=== PATIENT | female | born 1955 | race Caucasian/White ===

== ENCOUNTER → 2021-06-12 | Outpatient (CLI) | payer MEDICARE ==
--- NOTE | 2021-06-12 08:55 | US ---
EXAMINATION TYPE: US abdomen complete DATE OF EXAM: 06/12/2021 COMPARISON: NONE CLINICAL HISTORY: R10.811 Right upper quadrant abdominal tenderness. Intermittent RUQ pain and N/V x 6 weeks, gets worse after eating EXAM MEASUREMENTS: Liver Length: 11.9 cm Gallbladder Wall: 0.2 cm CBD: 0.5 cm Spleen: 9.7 cm Right Kidney: 9.1 x 4.3 x 4.0 cm Left Kidney: 10.1 x 4.1 x 4.5 cm Pancreas: visualized portions wnl, tail limited by overlying midline bowel gas Liver: wnl Gallbladder: 0.5cm hyperechoic focus along anterior wall, possible polyp Evidence for sonographic Martinez's sign: yes CBD: wnl Spleen: wnl Right Kidney: wnl Left Kidney: wnl Upper IVC: wnl Abd Aorta: wnl The liver is homogenous. The intrahepatic portion of the IVC and proximal abdominal aorta are within normal limits. There is no evidence of cholelithiasis. Common bile duct is unremarkable. The visu alized portions of the pancreas are homogenous. The spleen is unremarkable. Kidneys are symmetric a nd free of hydronephrosis. No renal lesions are seen. IMPRESSION: Suspect gallbladder polyp.
== END | disposition home or self-care (01) ==
LOC: RADUSWWP 08:09
PROVIDERS: ATTEND Internal Medicine
DX: R10.811 Right upper quadrant abdominal tenderness (principal)
CPT/HCPCS: 76700

== ENCOUNTER → 2021-10-05 | Outpatient (CLI) | payer MEDICARE ==
--- NOTE | 2021-10-11 12:20 | MM ---
Reason for exam: screening (asymptomatic). Last mammogram was performed 1 year ago. History: Patient is postmenopausal. Family history of breast cancer in mother at age 75 and breast cancer in maternal grandmother. Physical Findings: A clinical breast exam by your physician is recommended on an annual basis and results should be correlated with mammographic findings. MG 3D Screening Mammo W/Cad Bilateral CC and MLO view(s) were taken. Prior study comparison: September 23, 2020, mammogram, performed at [facility]. August 13, 2019, mammogram, performed at [facility]. The breast tissue is heterogeneously dense. This may lower the sensitivity of mammography. There is no discrete abnormality. ASSESSMENT: Negative, BI-RAD 1 RECOMMENDATION: Routine screening mammogram of both breasts in 1 year. Some consider bilateral ultrasound surveillance in patient with extremely dense fibroglandular tissue.
== END | disposition home or self-care (01) ==
LOC: RADMAMWWP 09:44
PROVIDERS: ATTEND Internal Medicine
DX: Z12.31 Encounter for screening mammogram for malignant neoplasm of breast (principal); Z78.0 Asymptomatic menopausal state; Z80.3 Family history of malignant neoplasm of breast
CPT/HCPCS: 77063; 77067

== ENCOUNTER → 2021-10-19 | Outpatient (CLI) | payer MEDICARE ==
--- NOTE | 2021-10-19 11:49 | USB ---
Reason for exam: additional evaluation requested from abnormal screening. History: Patient is postmenopausal. Family history of breast cancer in mother at age 75 and breast cancer in maternal grandmother. Physical Findings: A clinical breast exam by your physician is recommended on an annual basis and results should be correlated with mammographic findings. US Breast BILAT Technologist: Amber Quesada Right complete breast ultrasound includes all four quadrants, the retroareolar region and axilla. Finding demonstrates no cystic or solid lesion seen. Left complete breast ultrasound includes all four quadrants, the retroareolar region and axilla. Finding demonstrates no cystic or solid lesion seen. Diffuse dense tissue throughout bilateral breasts. Results were given to the patient verbally at the time of the exam. ASSESSMENT: Negative, BI-RAD 1 RECOMMENDATION: Return to routine screening mammogram schedule for both breasts.
== END | disposition home or self-care (01) ==
LOC: RADUSWWP 08:04
PROVIDERS: ATTEND Internal Medicine
DX: R92.2 Inconclusive mammogram (principal); Z78.0 Asymptomatic menopausal state; Z80.3 Family history of malignant neoplasm of breast

== ENCOUNTER → 2021-11-07 | Outpatient (CLI) | payer MEDICARE ==
--- NOTE | 2021-11-08 16:08 | XR ---
EXAMINATION TYPE: XR foot complete RT DATE OF EXAM: 11/07/2021 COMPARISON: None HISTORY: Right great toe pain after crush injury TECHNIQUE: 3 view right foot FINDINGS: Hallux valgus deformity is present. There is mild diffuse joint space narrowing throughout the proximal and distal interphalangeal joint spaces. Metatarsal-phalangeal joint spaces appear prese rved. Alignment is otherwise unremarkable. Small plantar calcaneal heel spur is present. Follow up exams can be performed 7-10 days from acute trauma for continued pain. IMPRESSION: 1. No acute osseous abnormality right foot
--- NOTE | 2021-11-08 16:09 | XR ---
EXAMINATION TYPE: XR toes RT DATE OF EXAM: 11/07/2021 COMPARISON: Right foot HISTORY: Crush injury right great toe, pain TECHNIQUE: 4 view right great toe FINDINGS: Hallux valgus deformity is present. No displaced fractures are identified. Some soft tissue swelling over the distal first digit may be present. Joint space narrowing is present. Follow-up exams performed 7-10 days from acute trauma for continued pain. IMPRESSION: 1. No acute osseous abnormality right great toe
== END | disposition home or self-care (01) ==
LOC: RADXRMAIN 15:49
PROVIDERS: ATTEND Internal Medicine
DX: S99.821A Other specified injuries of right foot, initial encounter (principal); M79.674 Pain in right toe(s)

== ENCOUNTER → 2022-10-09 | Outpatient (CLI) | payer MEDICARE ==
--- NOTE | 2022-10-10 07:53 | MM ---
Reason for Exam: Screening (asymptomatic). Last screening mammogram was performed 12 month(s) ago. Patient History: Menarche at age 12. First Full-Term at age 25. Postmenopausal. Maternal grandmother had breast cancer, age 50. Mother had breast cancer, age 75. Risk Values: Viktoriya 5 year model risk: 3.3%. NCI Lifetime model risk: 11.1%. Prior Study Comparison: 08/13/2019 Screening Mammogram, [facility]. 09/23/2020 Screening Mammogram, [facility]. 10/05/2021 Bilateral Screening Mammogram, [facility]. Tissue Density: The breast tissue is extremely dense which could obscure a lesion on mammography. Findings: Analyzed By CAD. There is no suspicious group of microcalcifications or new suspicious mass in either breast. Overall Assessment: Negative, BI-RAD 1 Management: Screening Mammogram of both breasts in 1 year. A clinical breast exam by your physician is recommended on an annual basis and results should be correlated with mammographic findings. [facility] will attempt to contact patient to return for supplemental views and ultrasound if indicated. Electronically signed and approved by: Gerardo Calderon DO
== END | disposition home or self-care (01) ==
LOC: RADMAMWWP 09:28
PROVIDERS: ATTEND Internal Medicine
DX: Z12.31 Encounter for screening mammogram for malignant neoplasm of breast (principal); Z78.0 Asymptomatic menopausal state; Z80.3 Family history of malignant neoplasm of breast
CPT/HCPCS: 77063; 77067

== ENCOUNTER → 2023-04-10 | Outpatient (CLI) | payer MEDICARE ==
--- NOTE | 2023-04-10 23:35 | BD ---
EXAMINATION TYPE: Axial Bone Density DATE OF EXAM: 04/10/2023 CLINICAL HISTORY: 68 years old Female. ICD-10 CODE: M81.0 AGE-RELATED OSTEOPOROSIS W/O CURRENT PATHO LO Height: 66 in Weight: 146 lbs FRAX RISK QUESTIONS: History of Fracture in Adulthood: rt foot fx age 52, lt foot fx age 55, lt elbow fx age 64 RISK FACTORS HISTORY OF: Family History of Osteoporosis: yes mother Active: yes Postmenopausal woman: age 50 Lost more than 2 inches in height since high school: yes 06/18" MEDICATIONS: Osteoporosis Medications: yes Which medication: Fosamax How Lon years Additional Medications: cholesterol meds, vit b12 EXAM MEASUREMENTS: Bone mineral densitometry was performed using the [email or web address] System. Bone mineral density as measured about the Lumbar spine is: ----- L1-L4(G/cm2): 1.133 T Score Values are as follows: ----- L1: -1.9 ----- L2: -0.8 ----- L3: -0.2 ----- L4: 1.0 ----- L1-L4: -0.4 Z Score Values are as follows: ----- L1: -0.3 ----- L2: 0.8 ----- L3: 1.4 ----- L4: 2.6 ----- L1-L4: 1.2 Bone mineral density baseline Bone mineral density about the R hip (g/cm2): 0.838 Bone mineral density about the L hip (g/cm2): 0.728 T Score values are as follows: -----R Neck: -1.8 -----L Neck: -2.6 -----R Total: -1.3 -----L Total: -2.2 Z Score values are as follows: -----R Neck: -0.3 -----L Neck: -1.0 -----R Total: 0.0 -----L Total: -0.9 Bone mineral density baseline FRAX%s: The graph provided illustrates a 22.8% chance for a major osteoporotic fx and a 5.8% chance f or the hips probability for fx in 10 years time. IMPRESSION: Osteopenia (T Score between -2.5 and -1). There is slightly increased risk of fracture and the patient may be considered for treatment. Re-Screen 2-5 years. NOTE: T-SCORE=SD OF THE YOUNG ADULT MEAN.
== END | disposition home or self-care (01) ==
LOC: RADBDWWP 09:08
PROVIDERS: ATTEND Internal Medicine
DX: M81.0 Age-related osteoporosis without current pathological fracture (principal); M85.89 Other specified disorders of bone density and structure, multiple sites; Z78.0 Asymptomatic menopausal state
CPT/HCPCS: 77080

== ENCOUNTER → 2023-10-07 | Outpatient (CLI) | payer MEDICARE ==
--- NOTE | 2023-10-07 10:49 | XR ---
EXAMINATION TYPE: XR chest 2V DATE OF EXAM: 10/07/2023 COMPARISON: NONE HISTORY: Shortness of breath TECHNIQUE: Frontal and lateral views of the chest are obtained. FINDINGS: Scattered senescent parenchymal changes noted. Hyperinflation compatible with COPD. No evidence for infiltrate. No evidence for atelectasis. Heart size is stable. Mediastinal structures are stable and grossly unremarkable. No evidence for hilar prominence. Degenerative changes dorsal spine. IMPRESSION: 1. No evidence for acute pulmonary disease.
== END | disposition home or self-care (01) ==
LOC: RADXRWHC 10:26
PROVIDERS: ATTEND Internal Medicine
DX: J45.909 Unspecified asthma, uncomplicated (principal); R06.02 Shortness of breath
CPT/HCPCS: 71046

== ENCOUNTER → 2023-10-15 | Outpatient (CLI) | payer MEDICARE ==
--- NOTE | 2023-10-15 14:27 | MM ---
Reason for Exam: Screening (asymptomatic). Last screening mammogram was performed 12 month(s) ago. Patient History: Menarche at age 12. First Full-Term at age 25. Postmenopausal. Maternal grandmother had breast cancer, age 50. Mother had breast cancer, age 75. Risk Values: Viktoriya 5 year model risk: 3.4%. NCI Lifetime model risk: 10.7%. Prior Study Comparison: 09/23/2020 Screening Mammogram, [facility]. 10/05/2021 Bilateral Screening Mammogram, [facility]. 10/09/2022 Bilateral MG 3D screening mammo w/cad, [facility]. Tissue Density: The breasts are extremely dense, which lowers the sensitivity of mammography. Findings: Analyzed By CAD. The pattern is symmetrical. Pattern appears stable. Focal asymmetry may be medial posterior right craniocaudal view. No suspicious groups of microcalcifications, spiculated or lobular masses, architectural distortion or other secondary signs of malignancy are mammographically apparent. Overall Assessment: Benign, BI-RAD 2 Management: Screening Mammogram of both breasts in 1 year. A negative mammogram report should not preclude additional follow up of suspicious palpable abnormalities. Patient should continue monthly self breast exam. A clinical breast exam by your physician is recommended on an annual basis and results should be correlated with mammographic findings. Note on Viktoriya scores and lifetime risk: 1. A Viktoriya score greater than 3% is considered moderate risk. If this is the case, consider specialist referral to assess eligibility for a risk reducing agent. 2. If overall lifetime risk for the development of breast cancer is 20% or higher, the patient may qualify for future screening with alternating mammogram and breast MRI. Electronically signed and approved by: Dre Mane D.O. Radiologis
== END | disposition home or self-care (01) ==
LOC: RADMAMWWP 10:23
PROVIDERS: ATTEND Internal Medicine
DX: Z12.31 Encounter for screening mammogram for malignant neoplasm of breast (principal); Z78.0 Asymptomatic menopausal state; Z80.3 Family history of malignant neoplasm of breast
CPT/HCPCS: 77063; 77067

== ENCOUNTER → 2023-10-31 | Outpatient (CLI) | payer MEDICARE ==
[2023-10-31 14:11] VITALS: BP 158/94; PULSE 79; RESP 17; TEMP 98
--- NOTE | 2023-10-31 14:13 | P.GSCN ---
History of Present Illness Consult date: 10/31/23 Reason for Consult: high risk for breast cancer Requesting physician: Omi Watkins History of present illness: Celeste is a 68 year old female seen in consultation for Dr. Watkins regarding high risk for breast cancer. She had a bilateral mammogram on 10-15-23 which was BIRAD 2, this was personally reviewed. She had very dense breast. She does not feel any lumps masses or nodules of concern in either breast. She has never had any surgery in her breast. She has not had any recent trauma or infection in her breast. She is not complaining of any nipple discharge or skin changes. Risk Assessment: Viktoriya Risk:5 year: 3.4% lifetime risk: 10.7% Caffiene: 2 cups nicotine: none chocolate: occasional BCP: 10 years, then a tubal, then in her 40's for heavy periods for 4 years hormones: none Family History: mother: breast cancer metastasis when dx. in her 70's maternal grandmother: breast cancer, dx. in her 50's father: bladder cancer Hormonal History: menarche: 12 , breast fed: yes, age at first 25 menoapsue: 50 hormones: none Surgical History: tonsil gallbladder tubaligation Medical History: high cholesterol osteopenia Social History: nicotine: none alcohol: occasional drugs: none Review of Systems - Constitutional Denies fever, Denies weight loss - EENT Eyes: denies blurred vision Ears: deny: decreased hearing, tinnitus Ears, nose, mouth and throat: Denies dysphagia - Breasts bilateral: as per HPI - Cardiovascular Denies chest pain, Denies shortness of breath - Respiratory Reports cough - Gastrointestinal Gastrointestinal Comment(s): ? GERD - Genitourinary Genitourinary: Denies dysuria, Denies hematuria Menstruation: Reports postmenopausal - Musculoskeletal Reports as per HPI - Integumentary Reports as per HPI - Neurological Denies headaches, Denies syncope - Psychiatric Reports as per HPI - Endocrine Reports as per HPI - Allergic/Immunologic Reports seasonal allergies Surgical - Exam - General no distress - Eyes normal ocular movement - Neck trachea midline - Respiratory normal respiratory effort, clear to auscultation - Cardiovascular Rhythm: regular Heart Sounds: normal: S1, S2 - Abdomen Abdomen: soft, non tender, no guarding, no rigid, no rebound - Integumentary normal turgor - Neurologic no disoriented, no combative - Musculoskeletal normal gait - Psychiatric oriented to time, oriented to person, oriented to place, speech is normal, memory intact Breast Exam: BRA: 34DDD inspection: Bilateral grade 3 ptosis, right breast is larger than left breast Palpation: Right breast: Multi positional exam no dominant masses or nodules of concern Right axilla: No adenopathy of concern Left breast: Multi positional exam no dominant masses or nodules of concern Left axilla: No adenopathy of concern Results Impression: High risk breast cancer secondary to positive family history Viktoriya risk evaluation 5-year risk 3.4% Symmetry of the breast right breast larger than left breast High cholesterol Plan: We will discuss possibility of genetic testing, she is going to talk to them Option of chemoprophylaxis at this time she declined Close surveillance MRI of the breast with follow up Mammogram and ultrasound to alternate every 6 months with appointment after these are done follow up sooner any questions or concerns CC: Dr. Watkins
== END ==
LOC: WWCWWP 13:14
PROVIDERS: ATTEND Surgery
DX: E78.00 Pure hypercholesterolemia, unspecified (principal); R92.30 Dense breasts, unspecified; Z80.3 Family history of malignant neoplasm of breast

== ENCOUNTER 2024-03-24 13:23 | Inpatient (IN) | payer MEDICARE ==
[2024-03-24] MEDS ORDERED: PIPERACILLIN-TAZOBACTAM 3.375 GM in SODIUM CHLORIDE 0.9% 100 ML IVPB STA (13:45)
[2024-03-24] MEDS ORDERED: NALOXONE 0.4 MG/ML 1 ML VIAL IV PRN (15:15)
--- NOTE | 2024-03-24 15:15 | ED ---
General Adult HPI - General Chief complaint: Abdominal Pain Stated complaint: appendix issue-sent by PCP Time Seen by Provider: 03/24/24 14:00 Source: patient, RN notes reviewed, old records reviewed Mode of arrival: ambulatory Limitations: no limitations - History of Present Illness Initial comments: Patient is a 69-year-old female who was sent in by her PCP for acute appendicitis. Patient had outpatient CT performed this morning. Has been having some nausea with some emesis on Saturday but mostly right lower quadrant abdominal pain since Saturday which is 2 days ago. Patient has a history of a cholecystectomy, tubal ligation. Past medical history includes hyperlipidemia. Denies diarrhea or constipation. Endorses nausea with nonbilious nonbloody emesis 2 days ago. Has no other acute complaints at this time. Presents for admission. - Related Data Home Medications Medication Instructions Recorded Confirmed Cyanocobalamin (Vitamin B-12) 1,000 mcg PO DAILY 03/24/24 03/24/24 [Vitamin B-12] Rosuvastatin Calcium [Crestor] 40 mg PO HS 03/24/24 03/24/24 Allergies Allergy/AdvReac Type Severity Reaction Status Date / Time No Known Allergies Allergy Verified 03/24/24 14:53 Review of Systems ROS Statement: Those systems with pertinent positive or pertinent negative responses have been documented in the HPI. Review of Systems: CONST: Denies fever EYES: Denies blurry vision ENT: Denies nasal congestion C/V: Denies Chest pain RESP: Denies shortness of breath GI: Endorses abdominal pain : Denies dysuria SKIN: Denies rash. MSK: Denies joint pain. NEURO: Denies headache ROS Other: All systems not noted in ROS Statement are negative. Past Medical History Past Medical History: Hyperlipidemia History of Any Multi-Drug Resistant Organisms: None Reported Past Surgical History: Cholecystectomy, Tonsillectomy, Tubal Ligation Past Anesthesia/Blood Transfusion Reactions: No Reported Reaction Past Psychological History: No Psychological Hx Reported Smoking Status: Never smoker Past Alcohol Use History: Occasional Past Drug Use History: None Reported General Exam - General Exam Comments Initial Comments: General: Appears in mild discomfort secondary to abdominal pain. HEAD: Normal with no signs of head trauma. EYES: EOMI ENT: Hearing grossly intact, normal oropharynx. RESPIRATORY: Clear breath sounds bilaterally. No wheezes, rales, or rhonchi. C/V: Regular rate and rhythm. S1 and S2 auscultated, no edema, peripheral pulses 2+ and intact throughout ABD: Abdomen soft, nondistended. Tender palpation of the right lower quadrant. No guarding or rebound tenderness. No peritoneal signs. EXT: Normal range of motion, no obvious deformity SKIN: No rashes or lesions observed on exposed skin. NEURO: Alert and oriented x 4. Limitations: no limitations Course Vital Signs 03/24/24 13:24 Temperature 98.3 F Pulse Rate 102 H Respiratory 18 Rate Blood Pressure 122/81 O2 Sat by Pulse 98 Oximetry Medical Decision Making - Medical Decision Making Was pt. sent in by a medical professional or institution (, PA, BOX TOE CEMENTER, urgent care, hospital, or group home...) When possible be specific @ -Sent in by Dr. Watkins the patient's PCP for admission for acute appendicitis. Did you speak to anyone other than the patient for history (EMS, parent, family, police, friend...)? What history was obtained from this source @ -No Did you review nursing and triage notes (agree or disagree)? Why? @ -I reviewed and agree with nursing and triage notes Were old charts reviewed (outside hosp., previous admission, EMS record, old EKG, old radiological studies, urgent care reports/EKG's, group home records)? Report findings @ -No old charts were reviewed Differential Diagnosis (chest pain, altered mental status, abdominal pain women, abdominal pain men, vaginal bleeding, weakness, fever, dyspnea, syncope, headache, dizziness, GI bleed, back pain, seizure, CVA, palpatations, mental health, musculoskeletal)? @ -Differential Abdominal Pain Women: Appendicitis, Cholecystitis, diverticulosis, ischemic bowel, pancreatitis, hepatitis, UTI, gastroenteritis, AAA, incarcerated hernia, bowel obstruction, constipation, inflammatory bowel, hepatitis, peptic ulcer disease, splenic infarction, perforated viscus, vulvitis, ovarian torsion, PID, kidney stone, placenta abruption, this is not meant to be an all-inclusive list EKG interpreted by me (3pts min.). @ -None done X-rays interpreted by me (1pt min.). @ -None done CT interpreted by me (1pt min.). @ -None done. Outpatient CT completed and was interpreted by radiology as showing U/S interpreted by me (1pt. min.). @ -None done What testing was considered but not performed or refused? (CT, X-rays, U/S, labs)? Why? @ -None What meds were considered but not given or refused? Why? @ -None Did you discuss the management of the patient with other professionals (professionals i.e. , PA, BOX TOE CEMENTER, lab, RT, psych nurse, social work supervisor, golf caddie, teacher, sports development officer, nurse case management)? Give summary @ -Discussed with surgeon, Dr. Vasquez who accepted the admission. Requested I consult some physician group for medical management. They will be notified. Was smoking cessation discussed for >3mins.? @ -No Was critical care preformed (if so, how long)? @ -No Were there social determinants of health that impacted care today? How? (Homelessness, low income, unemployed, alcoholism, drug addiction, transportation, low edu. Level, literacy, decrease access to med. care, usp, rehab)? @ -No Was there de-escalation of care discussed even if they declined (Discuss DNR or withdrawal of care, Hospice)? DNR status @ -No What co-morbidities impacted this encounter? (DM, HTN, Smoking, COPD, CAD, Cancer, CVA, ARF, Chemo, Hep., AIDS, mental health diagnosis, sleep apnea, morbid obesity)? @ -None Was patient admitted / discharged? Hospital course, mention meds given and route, prescriptions, significant lab abnormalities, going to OR and other pertinent info. @ -Based on the patient's presentation and physical exam, presents emergency department complaining of right lower quadrant abdominal pain with outpatient CT that did reveal acute appendicitis. We will obtain basic labs. Will obtain blood cultures. Patient be started on IV antibiotics and IV fluids. Patient will be admitted. She is made NPO. She was in agreement this plan. Vital signs are within acceptable limits. I spoke with Dr. Vasquez of the on-call surgeon who accepted the admission. He requested I consult sound physician group who accepted the consult. Was otherwise in agreement with the plan. Laboratory studies pending at time of admission. Undiagnosed new problem with uncertain prognosis? @ -No Drug Therapy requiring intensive monitoring for toxicity (Heparin, Nitro, Insulin, Cardizem)? @ -No Were any procedures done? @ -No Diagnosis/symptom? @ -Appendicitis Acute, or Chronic, or Acute on Chronic? @ -Acute Uncomplicated (without systemic symptoms) or Complicated (systemic symptoms)? @ -Complicated Side effects of treatment? @ -No Exacerbation, Progression, or Severe Exacerbation? @ -No Poses a threat to life or bodily function? How? (Chest pain, USA, AR, pneumonia, PE, COPD, DKA, ARF, appy, cholecystitis, CVA, Diverticulitis, Homicidal, Suicidal, threat to staff... and all critical care pts) @ -Potentially, yes Disposition Clinical Impression: Appendicitis Disposition: ADMITTED IP TO THIS HOSP Condition: Stable Referrals: Omi Watkins DO [Primary Care Provider] - 1-2 days Time of Disposition: 15:00
[2024-03-24] MEDS: ONDANSETRON 4 MG/2 ML VIAL IVP STA (15:18)
[2024-03-24] MEDS: KETOROLAC 15 MG/ML 1 ML VIAL IVP STA (15:18)
[2024-03-24] MEDS: PANTOPRAZOLE 40 MG/10 ML VIAL IVP STA (15:18)
[2024-03-24] MEDS: SODIUM CHLORIDE 0.9% 1,000 ML IV STA ×2 (15:19)
[2024-03-24] MEDS ORDERED: ONDANSETRON 4 MG/2 ML VIAL IVP PRN (15:22)
[2024-03-24] MEDS ORDERED: KETOROLAC 15 MG/ML 1 ML VIAL IVP PRN (15:22)
[2024-03-24 15:52] LABS: Basophils % (A) 0 %; Eosinophils # (A) 0.2 k/uL (0-0.7); Eosinophils % (A) 2 %; HCT 35.7 % (34.0-46.0); HGB 12.2 gm/dL (11.4-16.0); Lymphocytes # (A) 1.2 k/uL (1.0-4.8); Lymphocytes % (A) 13 %; MCH 29.5 pg (25.0-35.0); MCV 86.7 fL (80.0-100.0); Mean Platelet Volume 8.2; Monocytes # (A) 0.5 k/uL (0-1.0); Monocytes % (A) 5 %; Neutrophils # (A) 7.3 k/uL (1.3-7.7); Neutrophils % (A) 79 %; Platelet Count 184 k/uL (150-450); RBC 4.12 m/uL (3.80-5.40); RDW 13.2 % (11.5-15.5); WBC 9.2 k/uL (3.8-10.6)
[2024-03-24 16:00] LABS: ALT 16 U/L (4-34); AST 34 U/L (14-36); African American GFR (CKD) >90 (>60 ml/min/1.73 sqM); Albumin 4.4 g/dL (3.5-5.0); Alkaline Phosphatase 71 U/L (38-126); Amylase 67 U/L (30-110); Anion Gap 8 mmol/L; Blood Urea Nitrogen 13 mg/dL (7-17); Calcium 9.3 mg/dL (8.4-10.2); Carbon Dioxide 26 mmol/L (22-30); Chloride 101 mmol/L (98-107); Glucose 102 mg/dL (74-99); Lipase 73 U/L (23-300); Non-African American GFR(CKD) 81 (>60 ml/min/1.73 sqM); Potassium 3.6 mmol/L (3.5-5.1); Sodium 135 mmol/L (137-145); Total Bilirubin 0.9 mg/dL (0.2-1.3); Total Protein 7.4 g/dL (6.3-8.2)
[2024-03-24] MEDS: PIPERACILLIN-TAZOBACTAM 3.375 GM in SODIUM CHLORIDE 0.9% 100 ML IVPB STA (16:48)
--- NOTE | 2024-03-24 18:30 | P.CONS ---
History of Present Illness - Reason for Consult Consult date: 03/24/24 Medical Management Requesting physician: Diane Vasquez - History of Present Illness History of Presenting Illness: Patient is a very pleasant 69-year-old female past medical history of hyperlipidemia. She presented to the emergency department after being sent by her PCP for findings on outpatient CT confirming acute appendicitis. Patient reports she began having right lower quadrant pain, nausea, and vomiting 2 days ago and progressively worsening. She reports she made an appointment with her PCP and was sent for a CT of her abdomen. Patient denies having any fevers, chills, diaphoresis, chest pain, palpitations, shortness of breath, unintended weight loss, or experiencing any changes in her urinary or bowel function. Upon arrival to our facility, patient underwent evaluation in the emergency department. Vital signs upon arrival show blood pressure 122/81, heart rate 102, respiratory rate 18, temp 98.3 F, and SpO2 of 98% on room air. Labs were completed and reviewed. CBC unremarkable. BMP showing mild hyponatremia with sodium of 135 and a glucose of 102. Liver profile unremarkable. Amylase and lipase normal findings. CT abdomen and pelvis was reviewed finding showing acute uncomplicated appendicitis with multiple indeterminate hypodense lesions within the spleen possibly representing benign process such as hemangiomas versus other etiologies recommend further workup. Patient was admitted under general surgery team and we are consulted for medical management throughout her hospitalization. Review of systems: Pertinent positives and negatives as discussed in HPI, a complete review of systems was performed and all other systems are negative. Physical exam: Vital signs reviewed and stable. General: Nontoxic, no distress and appears stated age. Derm: Skin warm and dry, normal coloration for ethnicity. Head: Atraumatic, normocephalic and symmetric. Eyes: EOM's intact, no lid lag, and anicteric sclera Mouth: no lip lesions, mucus membranes moist Cardiovascular: regular rate and rhythm with normal S1S2, no murmur, positive posterior tibial pulses bilaterally, and cap refill < 2 seconds. Lungs: Respirations even, regular, and unlabored on room air. Lungs CTA bilaterally, no rhonchi, no rales, no wheezing, and no accessory muscle usage. Abdominal: soft, reported to palpation in right lower quadrant with rebound tenderness reported up on pressing right upper quadrant with reports of pain fe lt in right lower quadrant, no guarding, no appreciable organomegaly Ext: ROM intact. No gross muscle atrophy, no edema, no contractures Neuro: Speech clear, face symmetrical and CN II-XII grossly intact with no noted focal neuro deficits Psych: Alert and oriented to person, place, time, and situation. Appropriate and pleasant affect. Assessment and Plan of Care: Acute appendicitis -General Surgery following, taking patient to OR for laparoscopic appendectomy later today. -Continue symptomatic care and pain management. Zofran 4 mg IVP every 8 hours as needed for nausea or vomiting. Toradol 15 mg IVP every 6 hours as needed for pain. -NPO until cleared by general surgery to advance diet. -Continue with gentle IV fluid hydration with 0.9% normal saline at 130 cc/h, will reduce infusion rate and possibly discontinue once diet is advanced. -GI prophylaxis with Protonix 40 mg daily. Splenic lesions -CT revealing multiple indeterminate hypodense lesions within the spleen. -Recommend sending appendix to pathology. -Recommend outpatient MRI abdomen with contrast for follow up on lesions after completion of appendectomy. Hyperlipidemia -Continue atorvastatin 80 mg nightly. Data and imaging reviewed: As stated above in HPI Thank you for allowing us to participate in the care of this pleasant patient. Do not hesitate to contact us with questions. Someone can be reached from the [facility] hospitalist group all hours of the day at [phone] or via [employer]. Patient was seen independently by Nurse Practitioner. This document was prepared using Cover dictation software. Please allow for errors in fuel management handler while rare they do occur. I reviewed the documentation as provided by the CELENA above, who is the original a uthor of this note. I agree with the documented assessment and plan, with the following changes: none Past Medical History Past Medical History: Hyperlipidemia History of Any Multi-Drug Resistant Organisms: None Reported Past Surgical History: Cholecystectomy, Tonsillectomy, Tubal Ligation Past Anesthesia/Blood Transfusion Reactions: No Reported Reaction Past Psychological History: No Psychological Hx Reported Smoking Status: Never smoker Past Alcohol Use History: Occasional Past Drug Use History: None Reported Medications and Allergies Home Medications Medication Instructions Recorded Confirmed Type Cyanocobalamin (Vitamin B-12) 1,000 mcg PO DAILY 03/24/24 03/24/24 History [Vitamin B-12] Rosuvastatin Calcium [Crestor] 40 mg PO HS 03/24/24 03/24/24 History Allergies Allergy/AdvReac Type Severity Reaction Status Date / Time No Known Allergies Allergy Verified 03/24/24 14:53 Physical Exam Vitals: Vital Signs Temp Pulse Pulse Resp BP BP Pulse Ox 03/24/24 16:33 98.2 F 86 14 153/74 96 03/24/24 15:48 73 18 124/76 97 03/24/24 13:24 98.3 F 102 H 18 122/81 98 Intake and Output 03/24/24 03/24/24 03/24/24 06:59 14:59 22:59 Other: Weight 66.224 kg 66.224 kg Results CBC & Chem 7: 03/24/24 15:30 03/24/24 15:30 Labs: Abnormal Lab Results - Last 24 Hours (Table) 03/24/24 Range/Units 15:30 Sodium 135 L (137-145) mmol/L Glucose 102 H (74-99) mg/dL
--- NOTE | 2024-03-24 19:22 | P.GSHP ---
History of Present Illness H&P Date: 03/24/24 69-year-old female presents to the emergency department after being sent by radiology due to finding of appendicitis on CT of the abdomen pelvis. She initially presented today to her primary care physician's office for her physical and has had abdominal pain since Saturday. On exam, patient had sign ificant tenderness to the right lower quadrant and he sent her for CT of the abdomen and pelvis for further evaluation. CT did result with concerning finding of uncomplicated appendicitis. Patient states pain began periumbilical and relocated to the right lower quadrant. Complained of some nausea. No fevers. - Review of Systems All systems: negative Past Medical History Past Medical History: Hyperlipidemia History of Any Multi-Drug Resistant Organisms: None Reported Past Surgical History: Cholecystectomy, Tonsillectomy, Tubal Ligation Past Anesthesia/Blood Transfusion Reactions: No Reported Reaction Past Psychological History: No Psychological Hx Reported Smoking Status: Never smoker Past Alcohol Use History: Occasional Past Drug Use History: None Reported Medications and Allergies Home Medications Medication Instructions Recorded Confirmed Type Cyanocobalamin (Vitamin B-12) 1,000 mcg PO DAILY 03/24/24 03/24/24 History [Vitamin B-12] Rosuvastatin Calcium [Crestor] 40 mg PO HS 03/24/24 03/24/24 History Allergies Allergy/AdvReac Type Severity Reaction Status Date / Time No Known Allergies Allergy Verified 03/24/24 14:53 Surgical - Exam Osteopathic Statement: *. No significant issues noted on an osteopathic structural exam other than those noted in the History and Physical/Consult. Vital Signs Temp Pulse Resp BP Pulse Ox 98.3 F 102 H 18 122/81 98 03/24/24 13:24 03/24/24 13:24 03/24/24 13:24 03/24/24 13:24 03/24/24 13:24 - General well nourished, no distress - Eyes normal ocular movement - ENT no hearing loss - Neck trachea midline - Respiratory normal respiratory effort - Abdomen Soft, tender to palpation in right lower quadrant, nondistended, no rebound, no guarding Results - Labs 03/24/24 15:30 03/24/24 15:30 Abnormal Lab Results - Last 24 Hours (Table) 03/24/24 Range/Units 15:30 Sodium 135 L (137-145) mmol/L Glucose 102 H (74-99) mg/dL Diabetes panel 03/24/24 Range/Units 15:30 Sodium 135 L (137-145) mmol/L Potassium 3.6 (3.5-5.1) mmol/L Chloride 101 (98-107) mmol/L Carbon Dioxide 26 (22-30) mmol/L BUN 13 (7-17) mg/dL Creatinine 0.76 (0.52-1.04) mg/dL Glucose 102 H (74-99) mg/dL Calcium 9.3 (8.4-10.2) mg/dL AST 34 (14-36) U/L ALT 16 (4-34) U/L Alkaline Phosphatase 71 (38-126) U/L Total Protein 7.4 (6.3-8.2) g/dL Albumin 4.4 (3.5-5.0) g/dL Calcium panel 03/24/24 Range/Units 15:30 Calcium 9.3 (8.4-10.2) mg/dL Albumin 4.4 (3.5-5.0) g/dL Pituitary panel 03/24/24 Range/Units 15:30 Sodium 135 L (137-145) mmol/L Potassium 3.6 (3.5-5.1) mmol/L Chloride 101 (98-107) mmol/L Carbon Dioxide 26 (22-30) mmol/L BUN 13 (7-17) mg/dL Creatinine 0.76 (0.52-1.04) mg/dL Glucose 102 H (74-99) mg/dL Calcium 9.3 (8.4-10.2) mg/dL Adrenal panel 03/24/24 Range/Units 15:30 Sodium 135 L (137-145) mmol/L Potassium 3.6 (3.5-5.1) mmol/L Chloride 101 (98-107) mmol/L Carbon Dioxide 26 (22-30) mmol/L BUN 13 (7-17) mg/dL Creatinine 0.76 (0.52-1.04) mg/dL Glucose 102 H (74-99) mg/dL Calcium 9.3 (8.4-10.2) mg/dL Total Bilirubin 0.9 (0.2-1.3) mg/dL AST 34 (14-36) U/L ALT 16 (4-34) U/L Alkaline Phosphatase 71 (38-126) U/L Total Protein 7.4 (6.3-8.2) g/dL Albumin 4.4 (3.5-5.0) g/dL Assessment and Plan Plan: 69-year-old female with acute appendicitis. Plan for laparoscopic appendectomy. Keep NPO. Started on IV antibiotics. Further recommendations after surgical procedure.
[2024-03-24] MEDS: SODIUM CHLORIDE 0.9% 100 ML with ceFAZolin 2,000 MG IV ONE (19:40)
[2024-03-24] MEDS ORDERED: PROPOFOL 10 MG/ML 20 ML VIAL IV ONE (19:40)
[2024-03-24] MEDS ORDERED: ROCURONIUM 10 MG/ML (5 ML VIAL) IV ONE (19:40)
[2024-03-24] MEDS ORDERED: MIDAZOLAM 2 MG/2 ML VIAL ONE (19:40)
[2024-03-24] MEDS ORDERED: fentaNYL (PF) 50 MCG/ML 2 ML AMP ONE (19:40)
[2024-03-24] MEDS ORDERED: LIDOCAINE 1% INJ 10MG/ML (20 ML MDV) ONE (19:40)
[2024-03-24] MEDS ORDERED: HYDROmorphone (PF) 1 MG/ML ONE (19:40)
[2024-03-24] MEDS ORDERED: SUCCINYLCHOLINE CHLORIDE 200 MG/10 ML VIAL IV ONE (19:40)
[2024-03-24] MEDS: SODIUM CHLORIDE 0.9% 1,000 ML IV ONE (19:40)
[2024-03-24] MEDS: LIDOCAINE 1%-EPI 1:100,000 20 ML VIAL SQ ONE ×2 (19:59)
[2024-03-24] MEDS: LACTATED RINGERS 1,000 ML IV ONE (20:02)
--- NOTE | 2024-03-24 20:32 | P.OP ---
Date of Procedure: 03/24/24 Preoperative Diagnosis: Acute appendicitis Postoperative Diagnosis: Acute ruptured appendicitis Procedure(s) Performed: Laparoscopic appendectomy Anesthesia: MARILY Surgeon: Diane Vasquez Pathology: other (Appendix) Condition: stable Disposition: floor Indications for Procedure: 69-year-old female presented with complaint of right lower quadrant pain to her primary care physician's office. She was sent for CT of the abdomen and pelvis and found to have appendicitis. She was admitted secondary to this with plan for laparoscopic appendectomy. Risks, benefits and alternatives were provided to the patient. All questions were answered. Operative Findings: Ruptured appendicitis with stool and pus leakage Description of Procedure: Patient was brought to the operating suite and placed in supine position on the operating table. Sedation was provided by anesthesia and the patient underwent endotracheal intubation. The patient was then prepped and draped in regular sterile fashion. A supraumbilical incision was made and dissection was carried to the fascia. The fascia was incised and a 12 mm trocar was placed. Pneumoperitoneum was achieved. 2 additional 5 mm ports were placed. 1 in the suprapubic region and 1 in the left lower quadrant. Patient was then positioned appropriately. The appendix was noted to be adhered to the right abdominal wall and was bluntly peeled back. On peeling back, purulent drainage was noted along with appendicolith. On evaluation of the appendix it was noted to be significantly thickened, inflamed and ruptured. LigaSure device was used to dissect the appendix from the mesoappendix. Base of the appendix was clearly visualized. The appendix was noted to be in 2 pieces. Stapler device was fired across the base of the appendix and both pieces of the appendix were placed in the Endo Catch bag along with appendicolith. This was then removed from the abdomen. Copious amounts irrigation was placed in the right lower quadrant at the site of rupture to clear any stool spillage. No purulent drainage was left. Hemostasis was noted to be maintained. Irrigation was also placed in the pelvis and suctioned. At this point, the supraumbilical and fascial incision site was closed with 0 Vicryl suture under direct visualization using a Adrien- No device. Pneumoperitoneum was released. All ports removed from the abdomen. Incision sites were closed with 4-0 Vicryl subcuticular suture. Cultures of the appendix were also sent for both aerobic and anaerobic culture. Sponge and instrument count were correct x 2. Patient was sent to postanesthesia care unit in stable condition.
[2024-03-25] MEDS: ATORVASTATIN 80 MG TAB PO SCH (00:16)
[2024-03-25] MEDS: PIPERACILLIN-TAZOBACTAM 3.375 GM in SODIUM CHLORIDE 0.9% 100 ML IVPB SCH (00:17)
[2024-03-25] MEDS: HYDROcodone/APAP 5-325MG 1 EACH TAB PO PRN (04:38)
[2024-03-25] MEDS: PANTOPRAZOLE 40 MG/10 ML VIAL IV SCH (08:50)
[2024-03-25 10:51] LABS: HCT 31.8 % (37.2-46.3); HGB 10.2 g/dL (12.0-15.0); MCH 28.4 pg (27.0-32.0); MCHC 32.1 g/dL (32.0-37.0); MCV 88.6 FL (80.0-97.0); Mean Platelet Volume 10.7 FL (9.5-12.2); NRBC Per 100 WBC 0 X 10*3/uL (0.00-0.01); Platelet Count 151 X 10*3/uL (140-440); RBC 3.59 X 10*6/uL (4.10-5.20); RDW 12.9 % (11.5-14.5); WBC 5.56 X 10*3/uL (4.50-10.00)
[2024-03-25 11:05] LABS: ALT 313 U/L (8-44); AST 527 U/L (13-35); Albumin 3.4 g/dL (3.8-4.9); Alkaline Phosphatase 95 U/L (41-126); BUN/Creat Ratio 9.89 Ratio (12.00-20.00); Blood Urea Nitrogen 8.9 mg/dL (9.0-27.0); Calcium 7.9 mg/dL (8.7-10.3); Carbon Dioxide 19.2 mmol/L (21.6-31.8); Chloride 107 mmol/L (96-109); Glucose 103 mg/dL (70-110); Magnesium 1.6 mg/dL (1.5-2.4); Potassium 3.5 mmol/L (3.5-5.5); Sodium 139 mmol/L (135-145); Total Bilirubin 0.7 mg/dL (0.3-1.2); Total Protein 5.4 g/dL (6.2-8.2)
--- NOTE | 2024-03-25 11:29 | P.PN ---
Subjective Progress Note Date: 03/25/24 CHIEF COMPLAINT: Ruptured appendicitis HISTORY OF PRESENT ILLNESS: Patient is postop day #1 status post laparoscopic appendectomy. Patient reports her pain is controlled. She does report feeling bloated. No flatus. Denies any nausea or vomiting. Denies any difficulty urinating. Afebrile. WBC 5.56 Hgb 10.2 platelets 151 sodium 139 potassium 3.5 creatinine 0.9 total bilirubin 0.7 AST 527 and ALT 313. LFTs are elevated. PHYSICAL EXAM: VITAL SIGNS: Reviewed. GENERAL: Well-developed in no acute distress. HEENT: No sclera icterus. Extraocular movements grossly intact. Moist buccal mucosa. Head is atraumatic, normocephalic. ABDOMEN: Soft. Nondistended. Nontender. NEUROLOGIC: Alert and oriented. Cranial nerves II through XII grossly intact. ASSESSMENT: 1. Acute ruptured appendicitis status post laparoscopic appendectomy 2. Elevated LFTs. History of cholecystectomy PLAN: -Continue clear liquid diet -Repeat LFTs in a.m. -Continue antibiotics -Continue pain management -Courage patient to ambulate -Incentive spirometer ordered -GI prophylaxis Protonix and DVT prophylaxis subcu heparin Physician Heel Sprayer note has been reviewed by physician. Signing provider agrees with the documented findings, assessment, and plan of care. Attestation Patient seen and examined at bedside. Status post laparoscopic appendectomy for ruptured appendicitis yesterday. Patient appears to be doing well. Will continue clear liquid diet today and continue IV antibiotics. LFTs were notably elevated today and we will continue to follow. Progressing slowly. Diane Vasquez, DO Objective - Vital Signs Vital signs: Vital Signs Temp 98.6 F 03/25/24 09:34 Pulse 78 03/25/24 09:34 Resp 16 03/25/24 09:34 BP 103/54 03/25/24 09:34 Pulse Ox 96 03/25/24 09:34 FiO2 Intake & Output 03/24/24 03/25/24 03/25/24 18:59 06:59 18:59 Intake Total 1100 118 Output Total 4.6 Balance 1095.4 118 Weight 66.224 kg Intake: IV 1100 Oral 118 Output: Estimated Blood Loss 4.6 Other: Voiding Method Toilet Toilet # Voids 3 - Labs CBC & Chem 7: 03/25/24 05:48 03/25/24 05:48 Labs: Abnormal Lab Results - Last 24 Hours (Table) 03/24/24 03/25/24 03/25/24 Range/Units 15:30 05:48 05:48 RBC 3.59 L (4.10-5.20) X 10*6/uL Hgb 10.2 L (12.0-15.0) g/dL Hct 31.8 L (37.2-46.3) % Sodium 135 L (137-145) mmol/L Carbon Dioxide 19.2 L (21.6-31.8) mmol/L Anion Gap 12.80 H (4.00-12.00) mmol/L BUN 8.9 L (9.0-27.0) mg/dL BUN/Creatinine Ratio 9.89 L (12.00-20.00) Ratio Glucose 102 H (74-99) mg/dL Calcium 7.9 L (8.7-10.3) mg/dL AST 527 H (13-35) U/L ALT 313 H (8-44) U/L Total Protein 5.4 L (6.2-8.2) g/dL Albumin 3.4 L (3.8-4.9) g/dL Microbiology - Last 24 Hours (Table) 03/24/24 20:22 Gram Stain - Preliminary Appendix
[2024-03-25] MEDS: HEPARIN SODIUM,PORCINE 5,000 UNIT/ML 1 ML VIAL SQ SCH (12:48)
--- NOTE | 2024-03-25 14:30 | P.PN ---
Subjective Progress Note Date: 03/25/24 Hospital Course: Patient is a very pleasant 69-year-old female past medical history of hyperlipidemia. She presented to the emergency department after being sent by her PCP for findings on outpatient CT confirming acute appendicitis. Patient reports she began having right lower quadrant pain, nausea, and vomiting 2 days ago and progressively worsening. She reports she made an appointment with her PCP and was sent for a CT of her abdomen. Patient denies having any fevers, chills, diaphoresis, chest pain, palpitations, shortness of breath, unintended weight loss, or experiencing any changes in her urinary or bowel function. Upon arrival to our facility, patient underwent evaluation in the emergency department. Vital signs upon arrival show blood pressure 122/81, heart rate 102, respiratory rate 18, temp 98.3 F, and SpO2 of 98% on room air. Labs were completed and reviewed. CBC unremarkable. BMP showing mild hyponatremia with sodium of 135 and a glucose of 102. Liver profile unremarkable. Amylase and lipase normal findings. CT abdomen and pelvis was reviewed finding showing acute uncomplicated appendicitis with multiple indeterminate hypodense lesions within the spleen possibly representing benign process such as hemangiomas versus other etiologies recommend further workup. Patient was admitted under general surgery team and we are consulted for medical management throughout her hospitalization. Physical exam: Patient was seen and fully evaluated at bedside this morning. She was resting in bed visiting with her at bedside. Patient reports abdominal di stention/fullness and mild to moderate pain. She states that she has no appetite but denies having any nausea or vomiting. She denies passing flatus. Vital signs reviewed and stable. General: Nontoxic, no distress and appears stated age. Derm: Skin warm and dry, normal coloration for ethnicity. Head: Atraumatic, normocephalic and symmetric. Eyes: EOM's intact, no lid lag, and anicteric sclera Mouth: no lip lesions, mucus membranes moist Cardiovascular: regular rate and rhythm with normal S1S2, no murmur, positive posterior tibial pulses bilaterally, and cap refill < 2 seconds. Lungs: Respirations even, regular, and unlabored on room air. Lungs CTA bilaterally, no rhonchi, no rales, no wheezing, and no accessory muscle usage. Abdominal: soft distended, diffuse abdominal tenderness surrounding laparoscopic incisions. No guarding, no appreciable organomegaly Ext: ROM intact. No gross muscle atrophy, no edema, no contractures Neuro: Speech clear, face symmetrical and CN II-XII grossly intact with no noted focal neuro deficits Psych: Alert and oriented to person, place, time, and situation. Appropriate and pleasant affect. Assessment and Plan of Care: Acute appendicitis -General Surgery following, took patient to OR for laparoscopic appendectomy on 03/24/2024. -Continue symptomatic care and pain management. Zofran 4 mg IVP every 8 hours as needed for nausea or vomiting. Toradol 15 mg IVP every 6 hours as needed for pain. -Clear liquid diet, diet to be advanced as directed by general surgery team. -Patient tolerating clear liquids, IV fluids discontinued. -Patient to continue with Zosyn 3.375 g every 8 hours. -GI prophylaxis with Protonix 40 mg daily. Splenic lesions -CT revealing multiple indeterminate hypodense lesions within the spleen. -Follow-up on pathology report from appendix -Recommend outpatient MRI abdomen with contrast for follow up on lesions. Hyperlipidemia -Continue atorvastatin 80 mg nightly. Data and imaging reviewed: Reviewed operative report. Morning labs reviewed and stable. CBC showing normocytic anemia with hemogl obin of 10.2. BMP showing high anion gap metabolic acidosis with chloride of 107, bicarb 19.2, and anion gap of 12.80. IV fluids were discontinued at this time. Vital signs reviewed and stable. Blood pressure 103/54, heart rate 78, respiratory rate 16, temp 98.6 F, and SpO2 of 96% on room air. Thank you for allowing us to participate in the care of this pleasant patient. Do not hesitate to contact us with questions. Someone can be reached from the [facility] hospitalist group all hours of the day at [phone] or via [employer]. Patient was seen independently by Nurse Practitioner. This document was prepared using iFormulary dictation software. Please allow for errors in silver service waiter while rare they do occur. Patient was seen independently by Jean Paul Rizvi NP. I agree with the assessment and plan as above. Objective - Vital Signs Vital signs: Vital Signs Temp 97.7 F 03/24/24 21:52 Pulse 85 03/25/24 01:34 Resp 17 03/24/24 21:52 BP 107/67 03/25/24 01:34 Pulse Ox 96 03/25/24 01:34 FiO2 Intake & Output 03/24/24 03/25/24 03/25/24 18:59 06:59 18:59 Intake Total 1100 Output Total 4.6 Balance 1095.4 Weight 66.224 kg Intake: IV 1100 Output: Estimated Blood Loss 4.6 Other: Voiding Method Toilet Toilet # Voids 3 - Labs CBC & Chem 7: 03/26/24 04:27 03/26/24 04:27 Labs: Abnormal Lab Results - Last 24 Hours (Table) 03/24/24 Range/Units 15:30 Sodium 135 L (137-145) mmol/L Glucose 102 H (74-99) mg/dL Microbiology - Last 24 Hours (Table) 03/24/24 20:22 Gram Stain - Preliminary Appendix
[2024-03-25] MEDS: MAGNESIUM SULFATE-D5W PMX 1 GM in DEXTROSE/WATER 1 100ML.BAG IVPB SCH (15:05)
[2024-03-26 08:54] LABS: HCT 30.8 % (37.2-46.3); MCH 29.3 pg (27.0-32.0); MCHC 32.5 g/dL (32.0-37.0); MCV 90.3 FL (80.0-97.0); NRBC Per 100 WBC 0 X 10*3/uL (0.00-0.01); Platelet Count 160 X 10*3/uL (140-440); RBC 3.41 X 10*6/uL (4.10-5.20); RDW 13.2 % (11.5-14.5); WBC 10.02 X 10*3/uL (4.50-10.00)
[2024-03-26 09:26] LABS: Magnesium 2.4 mg/dL (1.5-2.4)
[2024-03-26 09:51] LABS: ALT 201 U/L (8-44); AST 181 U/L (13-35); Albumin 3.3 g/dL (3.8-4.9); Albumin/Globulin Ratio 1.57 Ratio (1.60-3.17); Alkaline Phosphatase 101 U/L (41-126); Blood Urea Nitrogen 9.6 mg/dL (9.0-27.0); Carbon Dioxide 23.7 mmol/L (21.6-31.8); Chloride 104 mmol/L (96-109); Globulin 2.1 g/dL (1.6-3.3); Glucose 101 mg/dL (70-110); Potassium 3.7 mmol/L (3.5-5.5); Sodium 137 mmol/L (135-145); Total Bilirubin 1.2 mg/dL (0.3-1.2); Total Protein 5.4 g/dL (6.2-8.2)
--- NOTE | 2024-03-26 11:53 | P.PN ---
Subjective Progress Note Date: 03/26/24 CHIEF COMPLAINT: Ruptured appendicitis HISTORY OF PRESENT ILLNESS: Patient is postop day #2 status post laparoscopic appendectomy. Patient reports her pain is about the same 6 out of 10. She reports her abdomen is distended. She is passing very tiny amount of flatus. Denies any nausea or vomiting. Afebrile. WBC 10.02 Hgb 10 platelets 160 sodium 137 potassium 3.7 creatinine 1.0 LFTs trending down PHYSICAL EXAM: VITAL SIGNS: Reviewed. GENERAL: Well-developed in no acute distress. ABDOMEN: Distended. Slightly softer than yesterday. Diffuse tenderness NEUROLOGIC: Alert and oriented. Cranial nerves II through XII grossly intact. ASSESSMENT: 1. Acute ruptured appendicitis status post laparoscopic appendectomy 2. Elevated LFTs. Trending downwards. History of cholecystectomy PLAN: -Continue clear liquid diet for now since patient continues to have pain and abdominal distention -Discussed with medicine service agree with adding Reglan. -Repeat LFTs in a.m. -Continue antibiotics -Continue pain management -Courage patient to ambulate -Incentive spirometer ordered -GI prophylaxis Protonix and DVT prophylaxis subcu heparin Physician Bus Driver/Monitor note has been reviewed by physician. Signing provider agrees with the documented findings, assessment, and plan of care. Objective - Vital Signs Vital signs: Vital Signs Temp 99.6 F 03/26/24 08:00 Pulse 93 03/26/24 08:00 Resp 16 03/26/24 08:00 BP 103/61 03/26/24 08:00 Pulse Ox 96 03/26/24 08:00 FiO2 Intake & Output 03/25/24 03/26/24 03/26/24 18:59 06:59 18:59 Intake Total 236 Balance 236 Intake: Oral 236 Other: Voiding Method Toilet # Voids 2 2 - Labs CBC & Chem 7: 03/26/24 04:27 03/26/24 04:27 Labs: Abnormal Lab Results - Last 24 Hours (Table) 03/26/24 03/26/24 Range/Units 04:27 04:27 WBC 10.02 H (4.50-10.00) X 10*3/uL RBC 3.41 L (4.10-5.20) X 10*6/uL Hgb 10.0 L (12.0-15.0) g/dL Hct 30.8 L (37.2-46.3) % BUN/Creatinine Ratio 9.60 L (12.00-20.00) Ratio Calcium 8.0 L (8.7-10.3) mg/dL AST 181 H (13-35) U/L ALT 201 H (8-44) U/L Total Protein 5.4 L (6.2-8.2) g/dL Albumin 3.3 L (3.8-4.9) g/dL Albumin/Globulin Ratio 1.57 L (1.60-3.17) Ratio Microbiology - Last 24 Hours (Table) 03/24/24 20:22 Gram Stain - Preliminary Appendix Wound Culture - Preliminary 03/24/24 15:30 Blood Culture - Preliminary Blood
[2024-03-26] MEDS: METOCLOPRAMIDE 5 MG/ML 2 ML VIAL IVP SCH (12:13)
--- NOTE | 2024-03-26 18:38 | P.PN ---
Subjective Progress Note Date: 03/26/24 Hospital Course: Patient is a very pleasant 69-year-old female past medical history of hyperlipidemia. She presented to the emergency department after being sent by her PCP for findings on outpatient CT confirming acute appendicitis. Patient reports she began having right lower quadrant pain, nausea, and vomiting 2 days ago and progressively worsening. She reports she made an appointment with her PCP and was sent for a CT of her abdomen. Patient denies having any fevers, chills, diaphoresis, chest pain, palpitations, shortness of breath, unintended weight loss, or experiencing any changes in her urinary or bowel function. Upon arrival to our facility, patient underwent evaluation in the emergency department. Vital signs upon arrival show blood pressure 122/81, heart rate 102, respiratory rate 18, temp 98.3 F, and SpO2 of 98% on room air. Labs were completed and reviewed. CBC unremarkable. BMP showing mild hyponatremia with sodium of 135 and a glucose of 102. Liver profile unremarkable. Amylase and lipase normal findings. CT abdomen and pelvis was reviewed finding showing acute uncomplicated appendicitis with multiple indeterminate hypodense lesions within the spleen possibly representing benign process such as hemangiomas versus other etiologies recommend further workup. Patient was admitted under general surgery team and we are consulted for medical management throughout her hospitalization. Physical exam: Patient was seen and fully evaluated at bedside this morning. She was resting in bed and continues to report abdominal distention/fullness and mild to m oderate pain. She states that she has no appetite, but is tolerating some clear liquids. She reports she has passed a small amount of flatus but denies any bowel movements. She also denies having any nausea or vomiting. Vital signs reviewed and stable. General: Nontoxic, no distress and appears stated age. Derm: Skin warm and dry, normal coloration for ethnicity. Head: Atraumatic, normocephalic and symmetric. Eyes: EOM's intact, no lid lag, and anicteric sclera Mouth: no lip lesions, mucus membranes moist Cardiovascular: regular rate and rhythm with normal S1S2, no murmur, positive posterior tibial pulses bilaterally, and cap refill < 2 seconds. Lungs: Respirations even, regular, and unlabored on room air. Lungs CTA bilaterally, no rhonchi, no rales, no wheezing, and no accessory muscle usage. Abdominal: soft distended, diffuse abdominal tenderness surrounding laparoscopic incisions. No guarding, no appreciable organomegaly Ext: ROM intact. No gross muscle atrophy, no edema, no contractures Neuro: Speech clear, face symmetrical and CN II-XII grossly intact with no noted focal neuro deficits Psych: Alert and oriented to person, place, time, and situation. Appropriate and pleasant affect. Assessment and Plan of Care: Acute appendicitis Transaminitis, improving -General Surgery following, took patient to OR for laparoscopic appendectomy on 03/24/2024. Discussed plan of care with general surgery PA and she is in agreement with starting patient on Reglan 10 mg IVP every 6 hours orders placed at this time., -Continue symptomatic care and pain management. Zofran 4 mg IVP every 8 hours as needed for nausea or vomiting. Toradol 15 mg IVP every 6 hours as needed for pain. -Clear liquid diet, diet to be advanced as directed by general surgery team. -Patient tolerating clear liquid diet. -Patient to continue with Zosyn 3.375 g every 8 hours. -GI prophylaxis with Protonix 40 mg daily. Splenic lesions -CT revealing multiple indeterminate hypodense lesions within the spleen. -Follow-up on pathology report from appendix -Recommend outpatient MRI abdomen with contrast for follow up on lesions. Hyperlipidemia -Continue atorvastatin 80 mg nightly. Data and imaging reviewed: Morning labs reviewed and stable. CBC showing normocytic anemia with hemoglobin of 10.0 and mild leukocytosis with WBC count of 10.02. BMP unremarkable. Magnesium 2.4. Liver profile showing improvement of elevated liver enzymes with AST of 181 and ALT of 201. Vital signs reviewed and stable. Blood pressure 103/61, heart rate 93, respiratory rate 16, temp 99.6 F, and SpO2 of 96% on 2 L. Thank you for allowing us to participate in the care of this pleasant patient. Do not hesitate to contact us with questions. Someone can be reached from the [facility] hospitalist group all hours of the day at [phone] or via [employer]. Patient was seen independently by Nurse Practitioner. This document was prepared using [employer] dictation software. Please allow for errors in joint cutter while rare they do occur. Patient was seen independently by Jean Paul Rizvi NP. I agree with the assessment and plan as above. Objective - Vital Signs Vital signs: Vital Signs Temp 99.6 F 03/26/24 08:00 Pulse 93 03/26/24 08:00 Resp 16 03/26/24 08:00 BP 103/61 03/26/24 08:00 Pulse Ox 96 03/26/24 08:00 FiO2 Intake & Output 03/25/24 03/26/24 03/26/24 18:59 06:59 18:59 Intake Total 236 Balance 236 Intake: Oral 236 Other: Voiding Method Toilet # Voids 2 2 - Labs CBC & Chem 7: 03/26/24 04:27 03/26/24 04:27 Labs: Abnormal Lab Results - Last 24 Hours (Table) 03/25/24 03/25/24 03/26/24 Range/Units 05:48 05:48 04:27 WBC 10.02 H (4.50-10.00) X 10*3/uL RBC 3.59 L 3.41 L (4.10-5.20) X 10*6/uL Hgb 10.2 L 10.0 L (12.0-15.0) g/dL Hct 31.8 L 30.8 L (37.2-46.3) % Carbon Dioxide 19.2 L (21.6-31.8) mmol/L Anion Gap 12.80 H (4.00-12.00) mmol/L BUN 8.9 L (9.0-27.0) mg/dL BUN/Creatinine Ratio 9.89 L (12.00-20.00) Ratio Calcium 7.9 L (8.7-10.3) mg/dL AST 527 H (13-35) U/L ALT 313 H (8-44) U/L Total Protein 5.4 L (6.2-8.2) g/dL Albumin 3.4 L (3.8-4.9) g/dL Microbiology - Last 24 Hours (Table) 03/24/24 20:22 Gram Stain - Preliminary Appendix Wound Culture - Preliminary 03/24/24 15:30 Blood Culture - Preliminary Blood
[2024-03-27] MEDS: PANTOPRAZOLE 40 MG TABLET PO SCH (06:26)
[2024-03-27 08:09] VITALS: BP 114/68; PULSE 90; RESP 16; TEMP 98.2
--- NOTE | 2024-03-27 11:58 | P.PN ---
Subjective Progress Note Date: 03/27/24 69-year-old female past medical history of hyperlipidemia. She presented to the emergency department after being sent by her PCP for findings on outpatient CT confirming acute appendicitis. Upon arrival to our facility, patient underwent evaluation in the emergency department. Vital signs upon arrival show blood pressure 122/81, heart rate 102, respiratory rate 18, temp 98.3 F, and SpO2 of 98% on room air. Labs were completed and reviewed. CBC unremarkable. BMP showing mild hyponatremia with sodium of 135 and a glucose of 102. Liver profile unremarkable. Amylase and lipase normal findings. CT abdomen and pelvis was reviewed finding showing acute uncomplicated appendicitis with multiple indeterminate hypodense lesions within the spleen possibly representing benign process such as hemangiomas versus other etiologies recommend further workup. She was started on Zosyn and admitted to surgery. Underwent laparoscopic appendectomy on 03/24. 03/27 Patient was seen and examined. No acute events overnight. Tolerating FLD well. No new labs done today. General: non toxic, no distress, appears at stated age Derm: warm, dry Head: atraumatic, normocephalic, symmetric Eyes: EOMI, no lid lag, anicteric sclera Mouth: no lip lesion, mucus membranes moist Cardiovascular: S1 S2 reg. No murmurs, rubs, gallops Lungs: Clear to auscultation bilaterally, no accessory muscle use Ext: no gross muscle atrophy, no edema, no contractures Neuro: no focal neuro deficits Psych: Alert, oriented, appropriate affect Based on my assessment of this patient, this patient meets a high complexity level of care. Acute appendicitis: Status post laparoscopic appendectomy on 03/24/2024. Uncomplicated diverticulitis does not require antibiotics post appendectomy. Orgas 5 Q6H PRN for pain. Toradol 15 mg IV Q6H PRN for pain. Zofran 4 mg IV TID PRN N/V. Reglan 10 mg IV Q6H. Transaminitis: Improving. Would recommend discontinuing Crestor until further improved. Repeat CMP in 3 days to be followed up with PCP. Splenic lesions: Advised to follow up with PCP for MRI Abd with contrast for further evaluation of splenic lesions. Hyperlipidemia: Hold Crestor for now. Medically stable. CODE STATUS: FULL CODE DVT Prophylaxis: Heparin SQ GI Prophylaxis: Protonix PO Designated medical POA if patient is not able to make medical decisions for themselves: I have reviewed the following resourcing consultant notes: Surgery note. I have reviewed the results of the following tests: I have ordered the following tests: I have discussed the care of this patient with the following independent historian: I have independently interpreted the following test below: I have discussed the management of this patient with the following physician: Keely SEVERINO. Objective - Vital Signs Vital signs: Vital Signs Temp 98.2 F 03/27/24 08:08 Pulse 90 03/27/24 08:08 Resp 16 03/27/24 08:08 BP 114/68 03/27/24 08:08 Pulse Ox 98 03/27/24 08:08 FiO2 Intake & Output 03/26/24 03/27/24 03/27/24 18:59 06:59 18:59 Intake Total 25 Balance 25 Intake: Oral 25 Other: Voiding Method Toilet Toilet Toilet # Voids 3 1 - Labs CBC & Chem 7: 03/26/24 04:27 03/26/24 04:27 Labs: Microbiology - Last 24 Hours (Table) 03/24/24 20:22 Anaerobic Culture - Preliminary Appendix 03/24/24 15:30 Blood Culture - Preliminary Blood
--- NOTE | 2024-03-27 13:00 | P.DS ---
Providers Date of admission: 03/26/24 15:45 Expected date of discharge: 03/27/24 Attending physician: Diane Vasquez DO Consults: 03/24/24 15:15 Consult Physician Routine Consulting Provider: Chip Dowd Consult Reason/Comments: medical consult Do you want consulting provider notified?: Yes [facility] care physician: [facility] Hospital Course: Discharge diagnosis 1. Acute ruptured appendicitis status post laparoscopic appendectomy 2. Elevated LFTs. Trending downwards. History of cholecystectomy Hospital course This is a 69-year-old female who came into the hospital with CT scan findings of appendicitis. She had been having right lower quadrant abdominal pain. Patient is status post laparoscopic appendectomy. Her pain is controlled. She is tolerating diet. She is having bowel movements. She has been up and ambulating. She is afebrile. She is stable for discharge. Patient has been educated that if she has any increase in abdominal pain to return back to the ER. She has been educated that due to the ruptured appendix she is at risk to develop an abscess. Please refer to chart for any further details. Physician [employer] note has been reviewed by physician. Signing provider agrees with the documented findings, assessment, and plan of care. Attestation Patient seen and examined at bedside. She states that she is feeling much better today and has had multiple bowel movements. Tolerating diet. Pain well- controlled. She is afebrile. Plan for discharge with oral antibiotics. I did educate her at bedside on abscess risk due to ruptured appendix. She will return to the emergency department should she have any symptoms concerning for abscess formation. Diane Vasquez DO Patient Condition at Discharge: Stable Plan - Discharge Summary New Discharge Prescriptions: New Amoxic-Pot Clav 500-125 mg [Augmentin 500-125 mg] 1 tab PO Q12HR #8 tab HYDROcodone/APAP 5-325MG [Rock 5-325] 1 tab PO Q6HR PRN 3 Days #12 tab PRN Reason: Pain Continue Cyanocobalamin (Vitamin B-12) [Vitamin B-12] 1,000 mcg PO DAILY Discontinued Rosuvastatin Calcium [Crestor] 40 mg PO HS Discharge Medication List Cyanocobalamin (Vitamin B-12) [Vitamin B-12] 1,000 mcg PO DAILY 03/24/24 [Histor y] Amoxic-Pot Clav 500-125 mg [Augmentin 500-125 mg] 1 tab PO Q12HR #8 tab 03/27/24 [Rx] HYDROcodone/APAP 5-325MG [Rock 5-325] 1 tab PO Q6HR PRN 3 Days #12 tab 03/27/24 [Rx] Follow up Appointment(s)/Referral(s): Omi Watkins DO [Primary Care Provider] - 1-2 days Ambulatory/Diagnostic Orders: Comprehensive Metabolic Panel [LAB.AMB] Time Frame: 3 Days, Location: None Selected Patient Instructions/Handouts: Laparoscopic Appendectomy (DC) Activity/Diet/Wound Care/Special Instructions: Activity: No driving while taking Rock No lifting over 10 pounds You may shower. No soaking or tub baths for 2 weeks Very light activity until you are reevaluated at your follow up appointment with your surgeon Diet: Heart healthy and carb consistent diet. Special Instructions: Take all of your medications as directed and remember to keep all of your doctor's appointments and follow-up as needed. Thank you for allowing us to participate in your care, it was truly a pleasure h aving you for our patient!!! Discharge Disposition: HOME SELF-CARE
== END 2024-03-27 15:24 | disposition home or self-care (01) | DRG 398 ==
LOC: EC 13:23 → 6NMEDSUR 15:24 → OBSVTOIN 03-26 15:45
PROVIDERS: ADMIT Surgery; ATTEND Surgery
PROC: 0DTJ4ZZ Resection of Appendix, Percutaneous Endoscopic Approach (ICD-10-PCS; principal; 2024-03-24 13:05)
DX: K35.32 Acute appendicitis with perforation, localized peritonitis, and gangrene, without abscess (principal); E87.1 Hypo-osmolality and hyponatremia; K57.32 Diverticulitis of large intestine without perforation or abscess without bleeding; E78.5 Hyperlipidemia, unspecified; D73.89 Other diseases of spleen; Z79.899 Other long term (current) drug therapy
CPT/HCPCS: 80053; 82150; 83605; 83690; 83735; 85025; 85027; 87040; 87070; 87075; 87077; 87186; 87205; 88304; 96374; 96375; 99285

== ENCOUNTER → 2024-03-24 | Outpatient (CLI) | payer MEDICARE ==
[2024-03-24 11:15] LABS: Basophils % (A) 0 %; Eosinophils # (A) 0.1 k/uL (0-0.7); Eosinophils % (A) 1 %; HCT 35.8 % (34.0-46.0); HGB 11.8 gm/dL (11.4-16.0); Lymphocytes # (A) 1.1 k/uL (1.0-4.8); Lymphocytes % (A) 9 %; MCV 87.8 fL (80.0-100.0); Mean Platelet Volume 8.2; Monocytes # (A) 0.6 k/uL (0-1.0); Monocytes % (A) 5 %; Neutrophils # (A) 10.6 k/uL (1.3-7.7); Neutrophils % (A) 85 %; Platelet Count 214 k/uL (150-450); RBC 4.08 m/uL (3.80-5.40); RDW 13.3 % (11.5-15.5); WBC 12.6 k/uL (3.8-10.6)
[2024-03-24 11:35] LABS: ALT 15 U/L (4-34); AST 23 U/L (14-36); African American GFR (CKD) 74 (>60 ml/min/1.73 sqM); Albumin 4.7 g/dL (3.5-5.0); Albumin/Globulin Ratio 1.6; Alkaline Phosphatase 89 U/L (38-126); Anion Gap 9 mmol/L; Blood Urea Nitrogen 13 mg/dL (7-17); Calcium 9.6 mg/dL (8.4-10.2); Carbon Dioxide 25 mmol/L (22-30); Chloride 105 mmol/L (98-107); Glucose 124 mg/dL (74-99); Non-African American GFR(CKD) 65 (>60 ml/min/1.73 sqM); Potassium 3.4 mmol/L (3.5-5.1); Sodium 139 mmol/L (137-145); Total Bilirubin 0.8 mg/dL (0.2-1.3); Total Protein 7.7 g/dL (6.3-8.2)
[2024-03-24 12:44] LABS: Appearance,Urine Cloudy (Clear); Bacteria,Urine Occasional /hpf; Bilirubin,Urine Negative (Negative); Blood,Urine Moderate (Negative); Color,Urine Yellow; Glucose,Urine (UA) Trace (Negative); Hyaline Casts,Urine 54 /lpf (0-2); Ketones,Urine 1+ (Negative); Leukocyte Esterase,Urine Moderate (Negative); Mucus,Urine Many /hpf; Nitrite,Urine Negative (Negative); PH, Urine 5.5 (5.0-8.0); Protein,Urine 2+ (Negative); RBC,Urine 2 /hpf (0-5); Specific Gravity,Urine 1.025 (1.001-1.035); Squamous Epithelial Cell,Urine 3 /hpf (0-4); WBC,Urine 49 /hpf (0-5)
--- NOTE | 2024-03-24 13:02 | CT ---
EXAMINATION TYPE: CT abdomen pelvis w con CT DLP: 633.40 mGycm, Automated exposure control for dose reduction was used. DATE OF EXAM: 03/24/2024 12:43 PM COMPARISON: Abdominal ultrasound 06/12/2021 CLINICAL INDICATION:Female, 69 years old with history of R10.31 RLQ PAIN; RLQ pain X 2 days TECHNIQUE: Standard CT of the abdomen and pelvis following the administration of 100 cc of Isovue 3 00 IV contrast material and oral contrast. Coronal and sagittal reformats were performed. FINDINGS: LOWER CHEST: Unremarkable ABDOMEN LIVER: Unremarkable GALLBLADDER AND BILE DUCTS: Gallbladder appears surgically absent. No biliary ductal dilatation. PANCREAS: Unremarkable. SPLEEN: Multiple hypodense lesions within the spleen with largest measuring up to 1.9 cm. ADRENAL GLANDS: Unremarkable. KIDNEYS AND URETERS: No evidence of hydronephrosis or renal calculus. The kidneys enhance symmetrical ly. Subcentimeter hypodense focus within the inferior pole of the right kidney which is too small to characterize. Contrast is demonstrated within both collecting systems on the delayed phase. PELVIS BLADDER: Incompletely distended but grossly unremarkable. REPRODUCTIVE: Multiple calcifications within the uterus most consistent with calcified fibroid change s. ABDOMEN & PELVIS STOMACH AND BOWEL: Stomach and duodenum are unremarkable. Enteric contrast reaches the descending col on. There is a dilated thickened appendix measuring up to 1.5 cm in diameter with surrounding fat str anding. No surrounding organized fluid collection. An appendicolith is identified within the midporti on of the appendix measuring up to 1.0 cm. No evidence of bowel obstruction. PERITONEUM: No evidence of pneumoperitoneum or free fluid. VASCULATURE: Mild atherosclerotic calcifications are present throughout the abdominal aorta and its b ranches. No evidence of aortic aneurysm. Tortuosity of the abdominal aorta. Pelvic phleboliths. MUSCULOSKELETAL: No acute osseous abnormalities. Levocurvature of the lumbar spine. Mild multilevel d egenerative disc disease. LYMPH NODES: No evidence for lymphadenopathy. SOFT TISSUE/ABDOMINAL WALL: Unremarkable IMPRESSION: 1. Acute uncomplicated appendicitis. 2. Multiple indeterminate hypodense lesions within the spleen. May represent benign processes such as hemangiomas versus other etiologies. Further workup recommended. Findings relayed to Rosalind with recommendation to call the patient and recommended visit to ER at 12:59 PM 03/24/2024. [facility], , 03/24/2024 12:59 PM
[2024-03-24 15:51] LABS: Chol/HDL Ratio 2.46 Ratio; LDL Cholesterol,Calculated 83.9 mg/dL (0.0-131.0)
[2024-03-25 11:02] LABS: % Iron Saturation 7.71 (12.00-45.00); Ferritin 85.1 ng/mL (10.0-291.0); Magnesium 2.1 mg/dL (1.5-2.4)
== END | disposition home or self-care (01) ==
LOC: RADCTMAIN 10:34
PROVIDERS: ATTEND Internal Medicine
DX: R10.31 Right lower quadrant pain
CPT/HCPCS: 36415; 74177; 80053; 80061; 81001; 82306; 82607; 82728; 82746; 83540; 83550; 83690; 83735; 84443; 85025; 87086

== ENCOUNTER → 2024-04-01 | Outpatient (CLI) | payer MEDICARE ==
--- NOTE | 2024-04-01 13:21 | US ---
EXAMINATION TYPE: US venous doppler duplex LE BI DATE OF EXAM: 04/01/2024 12:59 PM COMPARISON: NONE CLINICAL INDICATION: Female, 69 years old with history of R25.2 CRAMP AND SPASM; Pt states cramping t o right leg- denies symptoms to left leg- Dr. craft bilateral TECHNIQUE: The lower extremity deep venous system is examined utilizing real time linear array sonog elissa with graded compression, color doppler sonography, and spectral doppler. SIDE PERFORMED: Bilateral FINDINGS: VESSELS IMAGED: Common Femoral Vein Deep Femoral Vein Greater Saphenous Vein * Femoral Vein Popliteal Vein Small Saphenous Vein * Proximal Calf Veins (* superficial vessels) Grayscale, color doppler, spectral doppler imaging performed of the deep veins of the lower extremiti es. Right Leg: Appears Negative for DVT Left Leg: Appears Negative for DVT Results called to Dr. Watkins at time of exam IMPRESSION: No ultrasound evidence for deep venous thrombosis of either lower extremity. [facility], , 04/01/2024 1:18 PM
[2024-04-01 18:35] LABS: % Iron Saturation 10.76 (12.00-45.00); Iron 37 UG/DL (50-170); Magnesium 1.7 mg/dL (1.5-2.4); Total Iron Binding Capacity 344 UG/DL (228-460)
[2024-04-01 18:51] LABS: Basophils # (A) 0.07 X 10*3/uL (0.00-0.10); Basophils % (A) 0.6 %; Eosinophils # (A) 0.17 X 10*3/uL (0.04-0.35); Eosinophils % (A) 1.4 %; HCT 34.2 % (37.2-46.3); HGB 11.2 g/dL (12.0-15.0); Lymphocytes # (A) 1.41 X 10*3/uL (0.90-5.00); MCH 28.9 pg (27.0-32.0); MCHC 32.7 g/dL (32.0-37.0); MCV 88.4 FL (80.0-97.0); Mean Platelet Volume 9.4 FL (9.5-12.2); Monocytes # (A) 0.76 X 10*3/uL (0.20-1.00); Monocytes % (A) 6.5 %; NRBC Per 100 WBC 0 X 10*3/uL (0.00-0.01); Neutrophils # (A) 8.87 X 10*3/uL (1.80-7.70); Neutrophils % (A) 75.3 %; Platelet Count 388 X 10*3/uL (140-440); RBC 3.87 X 10*6/uL (4.10-5.20); WBC 11.77 X 10*3/uL (4.50-10.00)
[2024-04-01 18:57] LABS: ALT 62 U/L (8-44); AST 42 U/L (13-35); Albumin 3.9 g/dL (3.8-4.9); Albumin/Globulin Ratio 1.39 Ratio (1.60-3.17); Alkaline Phosphatase 118 U/L (41-126); BUN/Creat Ratio 10.27 Ratio (12.00-20.00); Blood Urea Nitrogen 11.3 mg/dL (9.0-27.0); Calcium 9.1 mg/dL (8.7-10.3); Chloride 98 mmol/L (96-109); Globulin 2.8 g/dL (1.6-3.3); Glucose 106 mg/dL (70-110); Potassium 2.7 mmol/L (3.5-5.5); Sodium 142 mmol/L (135-145); Total Bilirubin 0.3 mg/dL (0.3-1.2); Total Protein 6.7 g/dL (6.2-8.2)
[2024-04-02 09:00] LABS: Cryptosporidium Antigen Negative (Negative)
== END | disposition home or self-care (01) ==
LOC: RADUSWWP 12:12
PROVIDERS: ATTEND Internal Medicine
CPT/HCPCS: 80053; 82728; 83036; 83540; 83550; 83735; 85025; 87045; 87046; 87324; 87328; 87329; 93970

== ENCOUNTER → 2024-04-03 | Outpatient (CLI) | payer MEDICARE ==
[2024-04-03 18:24] LABS: HCT 34.6 % (37.2-46.3); HGB 10.9 g/dL (12.0-15.0); MCH 27.9 pg (27.0-32.0); MCHC 31.5 g/dL (32.0-37.0); MCV 88.5 FL (80.0-97.0); Mean Platelet Volume 9.2 FL (9.5-12.2); NRBC Per 100 WBC 0 X 10*3/uL (0.00-0.01); Platelet Count 364 X 10*3/uL (140-440); RBC 3.91 X 10*6/uL (4.10-5.20); RDW 13.1 % (11.5-14.5); WBC 9.49 X 10*3/uL (4.50-10.00)
[2024-04-03 20:18] LABS: Magnesium 1.8 mg/dL (1.5-2.4)
[2024-04-03 20:26] LABS: BUN/Creat Ratio 16.45 Ratio (12.00-20.00); Blood Urea Nitrogen 18.1 mg/dL (9.0-27.0); Carbon Dioxide 27.8 mmol/L (21.6-31.8); Chloride 103 mmol/L (96-109); Glucose 104 mg/dL (70-110); Potassium 3.3 mmol/L (3.5-5.5); Sodium 145 mmol/L (135-145)
[2024-04-03 20:27] LABS: ALT 46 U/L (8-44); AST 30 U/L (13-35); Albumin/Globulin Ratio 1.38 Ratio (1.60-3.17); Alkaline Phosphatase 105 U/L (41-126); Calcium 8.9 mg/dL (8.7-10.3); Globulin 2.9 g/dL (1.6-3.3); Total Bilirubin 0.3 mg/dL (0.3-1.2); Total Protein 6.9 g/dL (6.2-8.2)
== END | disposition home or self-care (01) ==
LOC: LABWHC1 12:49
PROVIDERS: ATTEND Internal Medicine
DX: E87.6 Hypokalemia (principal)
CPT/HCPCS: 36415; 80053; 83735; 85027

== ENCOUNTER → 2024-04-10 | Outpatient (CLI) | payer MEDICARE ==
[2024-04-10 15:05] LABS: HCT 35.2 % (37.2-46.3); HGB 10.9 g/dL (12.0-15.0); MCV 90.5 FL (80.0-97.0); Mean Platelet Volume 10.3 FL (9.5-12.2); NRBC Per 100 WBC 0 X 10*3/uL (0.00-0.01); Platelet Count 391 X 10*3/uL (140-440); RBC 3.89 X 10*6/uL (4.10-5.20); RDW 12.8 % (11.5-14.5); WBC 5.48 X 10*3/uL (4.50-10.00)
[2024-04-10 17:06] LABS: % Iron Saturation 12.76 (12.00-45.00); BUN/Creat Ratio 17.18 Ratio (12.00-20.00); Blood Urea Nitrogen 18.9 mg/dL (9.0-27.0); Chloride 104 mmol/L (96-109); Glucose 93 mg/dL (70-110); Iron 50 UG/DL (50-170); Magnesium 2.2 mg/dL (1.5-2.4); Potassium 4.6 mmol/L (3.5-5.5); Sodium 141 mmol/L (135-145); Total Iron Binding Capacity 392 UG/DL (228-460)
[2024-04-10 17:07] LABS: ALT 25 U/L (8-44); AST 23 U/L (13-35); Albumin 4.2 g/dL (3.8-4.9); Albumin/Globulin Ratio 1.45 Ratio (1.60-3.17); Alkaline Phosphatase 105 U/L (41-126); Calcium 9.4 mg/dL (8.7-10.3); Globulin 2.9 g/dL (1.6-3.3); Total Bilirubin 0.2 mg/dL (0.3-1.2); Total Protein 7.1 g/dL (6.2-8.2)
== END | disposition home or self-care (01) ==
LOC: LABWHC1 11:23
PROVIDERS: ATTEND Internal Medicine
DX: E87.6 Hypokalemia (principal)
CPT/HCPCS: 36415; 80053; 82728; 83540; 83550; 83735; 85027

== ENCOUNTER 2024-04-14 06:24 | Emergency (ER) | payer MEDICARE ==
[2024-04-14 06:29] VITALS: RESP 18
[2024-04-14 07:24] LABS: Basophils % (A) 1 %; Eosinophils # (A) 0.3 k/uL (0-0.7); Eosinophils % (A) 6 %; HCT 35.8 % (34.0-46.0); HGB 11.6 gm/dL (11.4-16.0); Lymphocytes # (A) 1.9 k/uL (1.0-4.8); Lymphocytes % (A) 32 %; MCH 28.4 pg (25.0-35.0); MCHC 32.4 g/dL (31.0-37.0); MCV 87.7 fL (80.0-100.0); Mean Platelet Volume 8.2; Monocytes # (A) 0.3 k/uL (0-1.0); Monocytes % (A) 6 %; Neutrophils # (A) 3.2 k/uL (1.3-7.7); Neutrophils % (A) 55 %; Platelet Count 298 k/uL (150-450); RBC 4.08 m/uL (3.80-5.40); RDW 12.9 % (11.5-15.5); WBC 5.9 k/uL (3.8-10.6)
--- NOTE | 2024-04-14 07:28 | ED ---
Abdominal Pain HPI - General Chief Complaint: Abdominal Pain Stated Complaint: Right sided pain Time Seen by Provider: 04/14/24 06:39 Source: patient, RN notes reviewed Mode of arrival: ambulatory Limitations: no limitations - History of Present Illness Initial Comments: 69-year-old female presents emergency department chief complaint of abdominal pain on the right side of her abdomen. Patient states she had a cholecystectomy [address] Joya states that she had a appendectomy [address] Vasquez states that she has been having usual bowel movements for self. Patient states she has had slight nausea without vomiting no fever or chills states that she feels bloated slightly distended. Denies any chest pain or shortness of breath. States that it hurts with movement, pressing on the right side of her abdomen. Nonradiating pain. - Related Data Home Medications Medication Instructions Recorded Confirmed Cyanocobalamin (Vitamin B-12) 1,000 mcg PO DAILY 03/24/24 03/24/24 [Vitamin B-12] Previous Rx's Medication Instructions Recorded Amoxic-Pot Clav 500-125 mg 1 tab PO Q12HR #8 tab 03/27/24 [Augmentin 500-125 mg] HYDROcodone/APAP 5-325MG [[place] 1 tab PO Q6HR PRN 3 Days #12 tab 03/27/24 5-325] Allergies Allergy/AdvReac Type Severity Reaction Status Date / Time No Known Allergies Allergy Verified 04/14/24 06:29 Review of Systems ROS Statement: Those systems with pertinent positive or pertinent negative responses have been documented in the HPI. ROS Other: All systems not noted in ROS Statement are negative. Past Medical History Past Medical History: Hyperlipidemia History of Any Multi-Drug Resistant Organisms: None Reported Past Surgical History: Appendectomy, Cholecystectomy, Tonsillectomy, Tubal Ligation Past Anesthesia/Blood Transfusion Reactions: No Reported Reaction Past Psychological History: No Psychological Hx Reported Smoking Status: Never smoker Past Alcohol Use History: Occasional Past Drug Use History: None Reported General Exam Limitations: no limitations General appearance: alert, in no apparent distress Head exam: Present: atraumatic, normocephalic, normal inspection Eye exam: Present: normal appearance, PERRL, EOMI. Absent: scleral icterus, conjunctival injection, periorbital swelling ENT exam: Present: normal exam, mucous membranes moist Neck exam: Present: normal inspection, full ROM. Absent: tenderness, meningismus, lymphadenopathy Respiratory exam: Present: normal lung sounds bilaterally. Absent: respiratory distress, wheezes, rales, rhonchi, stridor Cardiovascular Exam: Present: regular rate, normal rhythm, normal heart sounds. Absent: systolic murmur, diastolic murmur, rubs, gallop, clicks GI/Abdominal exam: Present: soft, tenderness, normal bowel sounds. Absent: distended, guarding, rebound, rigid Course Vital Signs 04/14/24 04/14/24 04/14/24 06:26 06:46 07:04 Temperature 97 F L 97.8 F Pulse Rate 89 80 Respiratory 18 18 Rate Blood Pressure 149/91 119/91 O2 Sat by Pulse 98 97 Oximetry 04/14/24 09:06 Temperature 97.9 F Pulse Rate 77 Respiratory 18 Rate Blood Pressure 139/89 O2 Sat by Pulse 97 Oximetry Medical Decision Making - Medical Decision Making Was pt. sent in by a medical professional or institution (, PA, FIELD APPLICATIONS SPECIALIST, urgent care, hospital, or prison...) When possible be specific @ -No Did you speak to anyone other than the patient for history (EMS, parent, family, police, friend...)? What history was obtained from this source @ -No Did you review nursing and triage notes (agree or disagree)? Why? @ -I reviewed and agree with nursing and triage notes Were old charts reviewed (outside hosp., previous admission, EMS record, old EKG, old radiological studies, urgent care reports/EKG's, prison records)? Report findings @ -Recent inpatient records, surgical records, CBC and comp Differential Diagnosis (chest pain, altered mental status, abdominal pain women, abdominal pain men, vaginal bleeding, weakness, fever, dyspnea, syncope, headache, dizziness, GI bleed, back pain, seizure, CVA, palpatations, mental health, musculoskeletal)? @ -Differential Abdominal Pain Women: Appendicitis, Cholecystitis, diverticulosis, ischemic bowel, pancreatitis, hepatitis, UTI, gastroenteritis, AAA, incarcerated hernia, bowel obstruction, constipation, inflammatory bowel, hepatitis, peptic ulcer disease, splenic infarction, perforated viscus, vulvitis, ovarian torsion, PID, kidney stone, placenta abruption, this is not meant to be an all-inclusive list EKG interpreted by me (3pts min.). @ -None X-rays interpreted by me (1pt min.). @ -None done CT interpreted by me (1pt min.). @ -CT abdomen pelvis showing mild colitis in the ascending colon, cyst of the spleen, no other postsurgical changes U/S interpreted by me (1pt. min.). @ -None done What testing was considered but not performed or refused? (CT, X-rays, U/S, labs)? Why? @ -None What meds were considered but not given or refused? Why? @ -None Did you discuss the management of the patient with other professionals (professionals i.e. , PA, FIELD APPLICATIONS SPECIALIST, lab, RT, psych nurse, social science research assistant, golf course keeper, teacher, county health officer, rehabilitation case coordinator)? Give summary @ -No Was smoking cessation discussed for >3mins.? @ -No Was critical care preformed (if so, how long)? @ -No Were there social determinants of health that impacted care today? How? (Homelessness, low income, unemployed, alcoholism, drug addiction, transportation, low edu. Level, literacy, decrease access to med. care, skilled nursing, rehab)? @ -No Was there de-escalation of care discussed even if they declined (Discuss DNR or withdrawal of care, Hospice)? DNR status @ -No What co-morbidities impacted this encounter? (DM, HTN, Smoking, COPD, CAD, C ancer, CVA, ARF, Chemo, Hep., AIDS, mental health diagnosis, sleep apnea, morbid obesity)? @ -None Was patient admitted / discharged? Hospital course, mention meds given and route, prescriptions, significant lab abnormalities, going to OR and other pertinent info. @ -Discharged patient has mild colitis, possible pancreatitis. Patient feels improved this time she is apprised to follow clear liquid diet and follow-up with the surgeon return parameters discussed. Undiagnosed new problem with uncertain prognosis? @ -No Drug Therapy requiring intensive monitoring for toxicity (Heparin, Nitro, Insu sravanthi, Cardizem)? @ -No Were any procedures done? @ -No Diagnosis/symptom? @ -Abdominal pain, colitis, dehydration Acute, or Chronic, or Acute on Chronic? @ -Acute Uncomplicated (without systemic symptoms) or Complicated (systemic symptoms)? @ -Uncomplicated Side effects of treatment? @ -No Exacerbation, Progression, or Severe Exacerbation? @ -No Poses a threat to life or bodily function? How? (Chest pain, [place], GA, pneumonia, PE, COPD, DKA, ARF, appy, cholecystitis, CVA, Diverticulitis, Homicidal, Suicidal, threat to staff... and all critical care pts) @ -No - Lab Data Result diagrams: 04/14/24 07:15 04/14/24 07:15 Lab Results 04/14/24 04/14/24 04/14/24 Range/Units 07:15 07:15 07:15 WBC 5.9 (3.8-10.6) k/uL RBC 4.08 (3.80-5.40) m/uL Hgb 11.6 (11.4-16.0) gm/dL Hct 35.8 (34.0-46.0) % MCV 87.7 (80.0-100.0) fL MCH 28.4 (25.0-35.0) pg MCHC 32.4 (31.0-37.0) g/dL RDW 12.9 (11.5-15.5) % Plt Count 298 (150-450) k/uL MPV 8.2 Neutrophils % 55 % Lymphocytes % 32 % Monocytes % 6 % Eosinophils % 6 % Basophils % 1 % Neutrophils # 3.2 (1.3-7.7) k/uL Lymphocytes # 1.9 (1.0-4.8) k/uL Monocytes # 0.3 (0-1.0) k/uL Eosinophils # 0.3 (0-0.7) k/uL Basophils # 0.0 (0-0.2) k/uL Sodium 139 (137-145) mmol/L Potassium 3.9 (3.5-5.1) mmol/L Chloride 104 (98-107) mmol/L Carbon Dioxide 27 (22-30) mmol/L Anion Gap 8 mmol/L BUN 18 H (7-17) mg/dL Creatinine 1.18 H (0.52-1.04) mg/dL Est GFR (CKD-EPI)AfAm 55 (>60 ml/min/1.73 sqM) Est GFR (CKD-EPI)NonAf 47 (>60 ml/min/1.73 sqM) Glucose 121 H (74-99) mg/dL Plasma Lactic Acid Jose (0.7-2.0) mmol/L Calcium 9.3 (8.4-10.2) mg/dL Total Bilirubin 0.5 (0.2-1.3) mg/dL AST 26 (14-36) U/L ALT 21 (4-34) U/L Alkaline Phosphatase 93 (38-126) U/L Total Protein 7.4 (6.3-8.2) g/dL Albumin 4.2 (3.5-5.0) g/dL Lipase 373 H (23-300) U/L Urine Color Colorless Urine Appearance Clear (Clear) Urine pH 6.0 (5.0-8.0) Ur Specific [place] 1.031 (1.001-1.035) Urine Protein Negative (Negative) Urine Glucose (UA) Negative (Negative) Urine Ketones Negative (Negative) Urine Blood Trace H (Negative) Urine Nitrite Negative (Negative) Urine Bilirubin Negative (Negative) Urine Urobilinogen <2.0 (<2.0) mg/dL Ur Leukocyte Esterase Negative (Negative) Urine RBC 1 (0-5) /hpf Urine WBC 1 (0-5) /hpf Ur Squamous Epith Cells <1 (0-4) /hpf Hyaline Casts 1 (0-2) /lpf Urine Mucus Rare H (None) /hpf 04/14/24 Range/Units 07:15 WBC (3.8-10.6) k/uL RBC (3.80-5.40) m/uL Hgb (11.4-16.0) gm/dL Hct (34.0-46.0) % MCV (80.0-100.0) fL MCH (25.0-35.0) pg MCHC (31.0-37.0) g/dL RDW (11.5-15.5) % Plt Count (150-450) k/uL MPV Neutrophils % % Lymphocytes % % Monocytes % % Eosinophils % % Basophils % % Neutrophils # (1.3-7.7) k/uL Lymphocytes # (1.0-4.8) k/uL Monocytes # (0-1.0) k/uL Eosinophils # (0-0.7) k/uL Basophils # (0-0.2) k/uL Sodium (137-145) mmol/L Potassium (3.5-5.1) mmol/L Chloride (98-107) mmol/L Carbon Dioxide (22-30) mmol/L Anion Gap mmol/L BUN (7-17) mg/dL Creatinine (0.52-1.04) mg/dL Est GFR (CKD-EPI)AfAm (>60 ml/min/1.73 sqM) Est GFR (CKD-EPI)NonAf (>60 ml/min/1.73 sqM) Glucose (74-99) mg/dL Plasma Lactic Acid Jose 0.9 (0.7-2.0) mmol/L Calcium (8.4-10.2) mg/dL Total Bilirubin (0.2-1.3) mg/dL AST (14-36) U/L ALT (4-34) U/L Alkaline Phosphatase (38-126) U/L Total Protein (6.3-8.2) g/dL Albumin (3.5-5.0) g/dL Lipase (23-300) U/L Urine Color Urine Appearance (Clear) Urine pH (5.0-8.0) Ur Specific [place] (1.001-1.035) Urine Protein (Negative) Urine Glucose (UA) (Negative) Urine Ketones (Negative) Urine Blood (Negative) Urine Nitrite (Negative) Urine Bilirubin (Negative) Urine Urobilinogen (<2.0) mg/dL Ur Leukocyte Esterase (Negative) Urine RBC (0-5) /hpf Urine WBC (0-5) /hpf Ur Squamous Epith Cells (0-4) /hpf Hyaline Casts (0-2) /lpf Urine Mucus (None) /hpf Disposition Clinical Impression: Abdominal pain, Colitis, Dehydration Disposition: HOME SELF-CARE Condition: Stable Instructions (If sedation given, give patient instructions): Abdominal Pain (ED) Additional Instructions: Please return to the Emergency Department if symptoms worsen or any other co ncerns. Is patient prescribed a controlled substance at d/c from ED?: No Referrals: Omi Watkins DO [Primary Care Provider] - 1-2 days Time of Disposition: 09:15
[2024-04-14 07:45] LABS: ALT 21 U/L (4-34); AST 26 U/L (14-36); African American GFR (CKD) 55 (>60 ml/min/1.73 sqM); Albumin 4.2 g/dL (3.5-5.0); Alkaline Phosphatase 93 U/L (38-126); Anion Gap 8 mmol/L; Blood Urea Nitrogen 18 mg/dL (7-17); Calcium 9.3 mg/dL (8.4-10.2); Carbon Dioxide 27 mmol/L (22-30); Chloride 104 mmol/L (98-107); Glucose 121 mg/dL (74-99); Lipase 373 U/L (23-300); Non-African American GFR(CKD) 47 (>60 ml/min/1.73 sqM); Potassium 3.9 mmol/L (3.5-5.1); Sodium 139 mmol/L (137-145); Total Bilirubin 0.5 mg/dL (0.2-1.3); Total Protein 7.4 g/dL (6.3-8.2)
--- NOTE | 2024-04-14 08:46 | CT ---
EXAMINATION TYPE: CT abdomen pelvis w con DATE OF EXAM: 04/14/2024 8:23 AM COMPARISON: CT abdomen pelvis most recent from 03/24/2024. CLINICAL INDICATION: Female, 69 years old with history of abdominal pain; RLQ pain , Appendectomy 03-24-2024 TECHNIQUE: Axial CT abdomen pelvis w con;Sagittal and coronal reformats were created on a separate w orkstation. Contrast used:100 ml mL of Isovue 370 with IV Contrast, (none if empty) Oral contrast used: without Oral Contrast (none if empty) CT DLP: 695.2 mGycm, Automated exposure control for dose reduction was used. FINDINGS: LOWER CHEST: Unremarkable ABDOMEN LIVER: Unremarkable GALLBLADDER AND BILE DUCTS: The gallbladder surgically absent. PANCREAS: Unremarkable. SPLEEN: Multiple hypodense areas as seen on prior. ADRENAL GLANDS: Unremarkable. KIDNEYS AND URETERS: No evidence of hydronephrosis or renal calculus. The ureters are unremarkable. PELVIS BLADDER: No evidence for wall thickening or mass given limitations of exam. REPRODUCTIVE: Degenerating fibroid within the right uterus. ABDOMEN & PELVIS STOMACH AND BOWEL: No evidence of bowel obstruction. Mild circumferential wall thickening in a decomp ressed ascending colon. The appendix is surgically absent. No organizing fluid collection the surgica l bed. PERITONEUM/RETROPERITONEUM: No evidence of pneumoperitoneum or free fluid. VASCULATURE: No evidence of aortic aneurysm. MUSCULOSKELETAL: No acute osseous abnormalities. Moderate disc degeneration changes are present throu ghout the thoracolumbar spine. LYMPH NODES: No gross evidence for lymphadenopathy. SOFT TISSUE/ABDOMINAL WALL: Unremarkable IMPRESSION: 1. Postsurgical changes with appendectomy no organizing fluid collection. Ascending colon decompress ion with possible underlying colitis. No other acute abdominal process in the right lower quadrant. N o evidence for obstructive uropathy or evidence for appendicitis. 2. Nonspecific hypodense areas throughout the spleen. These are nonspecific and the carotid represen t simple cysts versus microabscesses versus sarcoidosis changes versus others, clinical correlation a dvised. 3. Fibroid uterus. [facility], , 04/14/2024 8:44 AM
[2024-04-14] MEDS: SODIUM CHLORIDE 0.9% 1,000 ML IV ONE (09:02)
[2024-04-14 09:14] LABS: Appearance,Urine Clear (Clear); Bilirubin,Urine Negative (Negative); Blood,Urine Trace (Negative); Color,Urine Colorless; Glucose,Urine (UA) Negative (Negative); Hyaline Casts,Urine 1 /lpf (0-2); Ketones,Urine Negative (Negative); Leukocyte Esterase,Urine Negative (Negative); Mucus,Urine Rare /hpf; Nitrite,Urine Negative (Negative); Protein,Urine Negative (Negative); RBC,Urine 1 /hpf (0-5); Specific Gravity,Urine 1.031 (1.001-1.035); Squamous Epithelial Cell,Urine <1 /hpf (0-4); Urobilinogen,Urine <2.0 mg/dL (<2.0); WBC,Urine 1 /hpf (0-5)
[2024-04-14 09:31] VITALS: BP 154/94; PULSE 70; TEMP 98.1
== END 2024-04-14 09:45 | disposition home or self-care (01) ==
LOC: EC 06:24
CPT/HCPCS: 36415; 74177; 80053; 81001; 83605; 83690; 85025; 99285

== ENCOUNTER → 2024-04-29 | Outpatient (CLI) | payer MEDICARE ==
[2024-04-29 15:46] LABS: HCT 33.2 % (37.2-46.3); HGB 10.5 g/dL (12.0-15.0); MCH 28.6 pg (27.0-32.0); MCHC 31.6 g/dL (32.0-37.0); MCV 90.5 FL (80.0-97.0); Mean Platelet Volume 11.3 FL (9.5-12.2); NRBC Per 100 WBC 0 X 10*3/uL (0.00-0.01); Platelet Count 167 X 10*3/uL (140-440); RBC 3.67 X 10*6/uL (4.10-5.20); RDW 13.1 % (11.5-14.5); WBC 6.24 X 10*3/uL (4.50-10.00)
[2024-04-29 16:05] LABS: Blood Urea Nitrogen 17.6 mg/dL (9.0-27.0); Calcium 9.2 mg/dL (8.7-10.3); Carbon Dioxide 25.3 mmol/L (21.6-31.8); Chloride 104 mmol/L (96-109); Glucose 100 mg/dL (70-110); Magnesium 2.1 mg/dL (1.5-2.4); Sodium 140 mmol/L (135-145)
== END | disposition home or self-care (01) ==
LOC: LABWHC1 11:48
PROVIDERS: ATTEND Internal Medicine
DX: E87.6 Hypokalemia (principal)
CPT/HCPCS: 36415; 80048; 83735; 85027

== ENCOUNTER → 2024-05-21 | Outpatient (CLI) | payer MEDICARE ==
[2024-05-21 16:03] LABS: Basophils # (A) 0.07 X 10*3/uL (0.00-0.10); Basophils % (A) 1.1 %; Eosinophils # (A) 0.77 X 10*3/uL (0.04-0.35); Eosinophils % (A) 11.8 %; HGB 11.7 g/dL (12.0-15.0); Lymphocytes # (A) 1.54 X 10*3/uL (0.90-5.00); Lymphocytes % (A) 23.5 %; MCH 27.6 pg (27.0-32.0); MCHC 31.6 g/dL (32.0-37.0); MCV 87.3 FL (80.0-97.0); Mean Platelet Volume 10.3 FL (9.5-12.2); Monocytes # (A) 0.47 X 10*3/uL (0.20-1.00); Monocytes % (A) 7.2 %; NRBC Per 100 WBC 0 X 10*3/uL (0.00-0.01); Neutrophils # (A) 3.67 X 10*3/uL (1.80-7.70); Neutrophils % (A) 56.1 %; Platelet Count 218 X 10*3/uL (140-440); RBC 4.24 X 10*6/uL (4.10-5.20); WBC 6.54 X 10*3/uL (4.50-10.00)
[2024-05-21 16:34] LABS: Blood Urea Nitrogen 22.9 mg/dL (9.0-27.0); Calcium 9.6 mg/dL (8.7-10.3); Carbon Dioxide 25.5 mmol/L (21.6-31.8); Chloride 104 mmol/L (96-109); Glucose 104 mg/dL (70-110); Potassium 3.8 mmol/L (3.5-5.5); Sodium 140 mmol/L (135-145)
== END | disposition home or self-care (01) ==
LOC: LABWHC1 10:40
PROVIDERS: ATTEND Internal Medicine
DX: D50.9 Iron deficiency anemia, unspecified (principal)
CPT/HCPCS: 36415; 80048; 82607; 82746; 85025

== ENCOUNTER → 2025-01-11 | Outpatient (CLI) | payer MEDICARE ==
--- NOTE | 2025-01-11 07:59 | MM ---
Reason for Exam: Clinical finding. Last screening mammogram was performed 2 month(s) ago. Indicated Problems: Lump or thickening of the left side for 1 Month(s). Patient History: Menarche at age 12. First Full-Term at age 25. Postmenopausal. Patient used Hormonal Contraceptives for 7 years. Maternal grandmother had breast cancer, age 50. Mother had breast cancer, age 75. Risk Values: Viktoriya 5 year model risk: 3.4%. NCI Lifetime model risk: 10.2%. Prior Study Comparison: 10/09/2022 Bilateral MG 3D screening mammo w/cad, [facility]. 10/15/2023 Bilateral MG 3D screening mammo w/cad, [facility]. 11/11/2024 Bilateral MG 3D screening mammo w/cad, [facility]. Tissue Density: Left: The breasts are heterogeneously dense, which may obscure small masses. Findings: Analyzed By CAD. Oval isodense to low-density 1.3 cm area medial left breast seems to be located in the lower inner quadrant. This area appears more defined. Palpable marker medial to the nipple. No suspicious microcalcification or other discrete abnormality is seen. Overall Assessment: Incomplete: need additional imaging evaluation, BI-RAD 0 Management: Diagnostic Breast Ultrasound of the left breast. Targeted lower inner quadrant as well as the palpable site. [facility], , 01/11/2025 7:56 AM. Electronically signed and approved by: hSaron Rayo M.D. Radiologist
--- NOTE | 2025-01-11 08:21 | USB ---
Patient History: Menarche at age 12. First Full-Term at age 25. Postmenopausal. Patient used Hormonal Contraceptives for 7 years. Maternal grandmother had breast cancer, age 50. Mother had breast cancer, age 75. Risk Values: Viktoriya 5 year model risk: 3.4%. NCI Lifetime model risk: 10.2%. Technique: Method: Targeted. Prior Study Comparison: 10/09/2022 Bilateral MG 3D screening mammo w/cad, [facility]. 10/15/2023 Bilateral MG 3D screening mammo w/cad, [facility]. 11/11/2024 Bilateral MG 3D screening mammo w/cad, [facility]. Findings: The lower inner quadrant of the left breast, the axilla of the left breast and the retroareolar of the left breast were scanned. Targeted ultrasound lower inner quadrant left breast 6:00 to 9:00 including scanning of the subareolar region and axilla. At the 9:00 periareolar region, 3 cm from the nipple, corresponding to the patient's palpable site, there is a tiny 2 mm round lesion too small to accurately characterize, probably a tiny cyst that can be reassessed in 6 months. At the 8:00 position, 8 cm from the nipple, there is a benign 6 mm cyst with surrounding dense tissue. No other solid or cystic lesion or axillary adenopathy. Overall Assessment: Probably benign, BI-RAD 3 Management: Diagnostic Mammogram of the left breast in 6 months. Diagnostic Breast Ultrasound of the left breast in 6 months. See note below in regards to the patient's increased 5 year Viktoriya score. A clinical breast exam by your physician is recommended on an annual basis and results should be correlated with mammographic findings. This exam should not preclude additional follow-up of suspicious palpable abnormalities. Results were given to the patient verbally at the time of exam. Note on Viktoriya scores and lifetime risk: 1. A Viktoriya score greater than 3% is considered moderate risk. If this is the case, consider specialist referral to assess eligibility for a risk reducing agent. 2. If overall lifetime risk for the development of breast cancer is 20% or higher, the patient may qualify for future screening with alternating mammogram and breast MRI. [facility], , 01/11/2025 8:18 AM. Electronically signed and approved by: Sharon Rayo M.D. Radiologist
== END | disposition home or self-care (01) ==
LOC: RADMAMWWP 07:26
PROVIDERS: ATTEND Internal Medicine
DX: N63.20 Unspecified lump in the left breast, unspecified quadrant (principal); R92.332 Mammographic heterogeneous density, left breast; Z78.0 Asymptomatic menopausal state; Z80.3 Family history of malignant neoplasm of breast; Z92.0 Personal history of contraception
CPT/HCPCS: 77065; 76642; G0279; 77061